=== PATIENT | male | born 1980 | race American Indian/Alaskan Native ===

== ENCOUNTER 2017-10-20 00:43 | Emergency (ER) | payer BC ==
--- NOTE | 2017-10-20 01:29 | C.PDOC ---
History Of Present Illness 37 year old male with previous medical history of hypertension, who presents to the emergency department with a complaint of left groin pain associated with general weakness, malaise, subjective fever and chills ongoing today at work. Patient reported he has been working 3 months straight and feels "run down". PMD: none provided Time Seen by Provider: 10/20/17 01:29 Chief Complaint (Nursing): Groin Pain History Per: Patient History/Exam Limitations: no limitations Onset/Duration Of Symptoms: Days (x1) Current Symptoms Are (Timing): Still Present Severity: Mild Pain Scale Rating Of: 2 Recent travel outside of the [place]: No Additional History Per: Patient Past Medical History Reviewed: Historical Data, Nursing Documentation, Vital Signs Vital Signs: Last Vital Signs Temp 102.3 F H 10/20/17 03:53 Pulse 115 H 10/20/17 03:53 Resp 22 10/20/17 03:53 BP 123/65 10/20/17 03:53 Pulse Ox 98 10/20/17 03:53 - Medical History PMH: HTN Denies: Chronic Kidney Disease Surgical History: Appendectomy - [facility] Procedures INSERTION OF INFUSION DEV INTO SUP VENA CAVA, PERC APPROACH (09/11/15) INSERTION OF INFUSION DEVICE INTO R ATRIUM, PERC APPROACH (09/11/15) Family History: States: Hypertension - Social History Hx Tobacco Use: No Hx Alcohol Use: No Hx Substance Use: No - Immunization History Hx Tetanus Toxoid Vaccination: No Hx Influenza Vaccination: No Hx Pneumococcal Vaccination: No Review Of Systems Constitutional: Positive for: Fever, Chills, Weakness, Malaise ENT: Negative for: Nose Congestion Cardiovascular: Negative for: Chest Pain Respiratory: Negative for: Shortness of Breath Gastrointestinal: Negative for: Nausea, Vomiting, Abdominal Pain Genitourinary: Positive for: Other (left-sided groin pain) Musculoskeletal: Negative for: Back Pain Skin: Negative for: Rash Neurological: Negative for: Weakness Psych: Negative for: Anxiety Physical Exam - Physical Exam Appears: Well, No Acute Distress, Other (morbidly obese) Skin: Warm, Dry Head: Normacephalic Eye(s): bilateral: Normal Inspection Oral Mucosa: Moist Tongue: Normal Appearing Throat: Normal Neck: Supple Chest: Symmetrical Cardiovascular: Rhythm Regular Respiratory: No Decreased Breath Sounds, No Rales, No Rhonchi, No Wheezing Gastrointestinal/Abdominal: Normal Exam, Soft, No Tenderness Back: Normal Inspection, No CVA Tenderness, No Vertebral Tenderness Male Genital: Inguinal Tenderness (left-sided on deep palpation), No Other ( hernia noted) Extremity: No Tenderness Extremity: Bilateral: Atraumatic Neurological/Psych: Oriented x3, Normal Speech, Normal Cognition, Other ( speaking full sentences) Gait: Steady ED Course And Treatment O2 Sat by Pulse Oximetry: 99 (RA) Pulse Ox Interpretation: Normal Progress Note: 5:20 feels fine. no complaints Reevaluation Time: 05:34 Reassessment Condition: Improved Medical Decision Making Medical Decision Making: Initial Impression: Groin pain Initial Plan: * BMP * CBC * Lactated Ringers 1,000ml IV per 400mls/hr * Toradol 30mg IVP Scribe Attestation: Documented by Clarita Butt, acting as a scribe for Mack Ge MD. Provider Scribe Attestation: All medical record entries made by the Scribe were at my direction and personally dictated by me. I have reviewed the chart and agree that the record accurately reflects my personal performance of the history, physical exam, medical decision making, and the department course for this patient. I have also personally directed, reviewed, and agree with the discharge instructions and disposition. Disposition Counseled Patient/Family Regarding: Studies Performed, Diagnosis, Need For Followup, Rx Given - Disposition Referrals: [facility] [Outside] Counts Include [facility] At [facility] [Outside] Disposition: HOME/ ROUTINE Disposition Time: 01:29 Condition: FAIR Additional Instructions: please return if symptoms recur Prescriptions: Oseltamivir Phosphate [Tamiflu] 75 mg PO BID #10 capsule Instructions: Viral Syndrome (ED), Groin Pain (ED) Forms: [facility] ([place]), Work Excuse - Clinical Impression Clinical Impression: Viral syndrome, Strain of left inguinal muscle
[2017-10-20] MEDS ORDERED: Lactated Ringer's 1,000 ML IV ONE (01:36)
[2017-10-20 05:29] VITALS: O2SAT 99
[2017-10-20 06:21] VITALS: BP 128/76; PULSE 98; RESP 20; TEMP 101
== END 2017-10-20 05:50 | disposition home or self-care (01) ==
LOC: C.ER 00:43
DX: S39.011A Strain of muscle, fascia and tendon of abdomen, initial encounter (principal); B34.9 Viral infection, unspecified; I10 Essential (primary) hypertension; X58.XXXA Exposure to other specified factors, initial encounter
CPT/HCPCS: 96374; 99283; J1885

== ENCOUNTER 2017-10-24 20:00 | Inpatient (IN) | payer BC ==
[2017-10-24] MEDS ORDERED: cefTRIAXone IV 1 gm in Dextros 50 ML IVPB ONE (21:08)
[2017-10-24] MEDS ORDERED: Sodium Chloride 0.9% 1,000 ML IV ONE (21:08)
[2017-10-24] MEDS ORDERED: Sodium Chloride 0.9% 1,000 ML ONE (21:58)
[2017-10-24 22:15] LABS: SQUAMOUS EPITHIAL < 1 /hpf (0-5); URINE BILIRUBIN NEGATIVE (NEGATIVE); URINE CLARITY Clear (Clear); URINE COLOR Yellow (YELLOW); URINE GLUCOSE (UA) 3+ mg/dL (Normal); URINE LEUKOCYTE ESTERASE NEG Leu/uL (Negative); URINE NITRATE NEGATIVE (NEGATIVE); URINE PROTEIN 2+ mg/dL (NEGATIVE); URINE UROBILINOGEN NORMAL mg/dL (0.2-1.0)
[2017-10-24 22:22] LABS: BASO # 0.2 K/uL (0.0-0.2); BASO % 1.8 % (0.0-2.0); EOS # 0.2 K/uL (0.0-0.7); EOS % 1.5 % (0.0-4.0); HEMOGLOBIN 10.6 g/dL (12.0-18.0); LYMPH # 0.9 K/uL (1.0-4.3); LYMPH % 7.8 % (20.0-40.0); MEAN CELL VOLUME 86.6 fL (80.0-94.0); MEAN CORPUSCULAR HEMOGLOBIN 28.7 pg (27.0-31.0); MEAN CORPUSCULAR HGB CONC 33.1 g/dL (33.0-37.0); MEAN PLATELET VOLUME 10.7 fL (7.2-11.7); MONO # 1.2 K/uL (0.0-0.8); MONO % 9.8 % (0.0-10.0); NEUT # 9.7 K/uL (1.8-7.0); NEUT % 79.1 % (50.0-75.0); RBC 3.69 Mil/uL (4.40-5.90); RED CELL DISTRIBUTION WIDTH 13.9 % (11.5-14.5); WHITE BLOOD COUNT 12.3 K/uL (4.8-10.8)
[2017-10-24 22:26] LABS: PLATELET COUNT 228 K/uL (130-400)
[2017-10-24 22:29] LABS: ALB/GLOB RATIO 0.9 (1.0-2.1); ALBUMIN 3.9 g/dL (3.5-5.0); ALT/SGPT 31 U/L (21-72); AST/SGOT 32 U/L (17-59); BLOOD UREA NITROGEN 15 mg/dL (9-20); CALCIUM 9.5 mg/dl (8.6-10.4); GFR AFRICAN-AMERICAN > 60; GFR NON-AFRICAN AMERICAN > 60; URINE BLOOD 1+ (NEGATIVE)
--- NOTE | 2017-10-24 22:29 | C.PDOC ---
History Of Present Illness 37 year old male sent to ER by Dr. Streeter for swelling and pain to the left lower extremity for the past week. Denies fever or chills. Time Seen by Provider: 10/24/17 21:02 Chief Complaint (Nursing): Lower Extremity Problem/Injury History Per: Patient History/Exam Limitations: no limitations Onset/Duration Of Symptoms: Days Current Symptoms Are (Timing): Still Present Recent travel outside of the [place]: No Past Medical History Reviewed: Historical Data, Nursing Documentation, Vital Signs Vital Signs: Last Vital Signs Temp 99.9 F H 10/24/17 20:47 Pulse 101 H 10/24/17 20:47 Resp 18 10/24/17 20:47 BP 132/78 10/24/17 20:47 Pulse Ox 95 10/24/17 22:37 - Medical History PMH: HTN Surgical History: Appendectomy - [facility] Procedures INSERTION OF INFUSION DEV INTO SUP VENA CAVA, PERC APPROACH (09/11/15) INSERTION OF INFUSION DEVICE INTO R ATRIUM, PERC APPROACH (09/11/15) Family History: States: Hypertension - Social History Hx Tobacco Use: No Hx Alcohol Use: No Hx Substance Use: No - Immunization History Hx Tetanus Toxoid Vaccination: No Hx Influenza Vaccination: No Hx Pneumococcal Vaccination: No Review Of Systems Constitutional: Negative for: Fever, Chills Cardiovascular: Negative for: Chest Pain, Palpitations Gastrointestinal: Positive for: Abdominal Pain. Negative for: Nausea, Vomiting Genitourinary: Negative for: Dysuria, Hematuria Musculoskeletal: Positive for: Leg Pain (w/ swelling) Physical Exam - Physical Exam Appears: Non-toxic, No Acute Distress Skin: Warm, Dry Head: Atraumatic, Normacephalic Eye(s): bilateral: Normal Inspection Oral Mucosa: Moist Chest: Symmetrical, No Tenderness Cardiovascular: Rhythm Regular Respiratory: Normal Breath Sounds, No Rales, No Rhonchi, No Wheezing Gastrointestinal/Abdominal: Soft, No Tenderness Extremity: Other (Redness and tenderness to the left lower leg area. Warm to touch. No open wound noted.) Pulses: Left Dorsalis Pedis: Normal, Right Dorsalis Pedis: Normal Neurological/Psych: Oriented x3, Normal Speech, Normal Motor, Normal Sensation ED Course And Treatment - Laboratory Results Result Diagrams: 10/24/17 22:05 10/24/17 22:05 O2 Sat by Pulse Oximetry: 95 (Room air) Pulse Ox Interpretation: Normal Progress Note: Blood work and urinalysis ordered. IV fluids, insulin, and rocephin administered. Disposition Discussed With Dr.: Aaron Streeter Doctor Will See Patient In The: Hospital Counseled Patient/Family Regarding: Diagnosis - Disposition Disposition: HOSPITALIZED Disposition Time: 22:35 Condition: STABLE Forms: [facility] ([place]) - POA Present On Arrival: None - Clinical Impression Clinical Impression: Cellulitis, Uncontrolled diabetes mellitus, Hyperglycemia without ketosis - Scribe Statement The provider has reviewed the documentation as recorded by the Scribkathy Bella All medical record entries made by the Selenaibkathy were at my direction and personally dictated by me. I have reviewed the chart and agree that the record accurately reflects my personal performance of the history, physical exam, medical decision making, and the department course for this patient. I have also personally directed, reviewed, and agree with the discharge instructions and disposition.
[2017-10-24] MEDS ORDERED: Sodium Chloride 0.9% 500 ML IV ONE (22:30)
[2017-10-24] MEDS ORDERED: (Novolin R) Insulin Human Regular 100 units/ml vial SC ONE (22:31)
[2017-10-24] MEDS ORDERED: (Novolin R) Insulin Human Regular 100 units/ml vial ONE (22:38)
[2017-10-24 22:51] LABS: EOSINOPHIL 1 % (0-4); LYMPHOCYTE 10 % (20-40); MONOCYTE 17 % (0-10); NEUTROPHIL 72 % (50-75); TOTAL CELLS COUNTED 100
[2017-10-24 22:52] LABS: HYPOCHROMIC SLIGHT; PLATELET ESTIMATE NORMAL (NORMAL)
[2017-10-24 22:53] LABS: INR 1.2; PROTHROMBIN TIME 13.4 SECONDS (9.7-12.2)
[2017-10-24] MEDS ORDERED: Piperacillin/Tazobact 3.375 GM in Sodium Chloride 100 ML IVPB SCH (23:15)
[2017-10-24] MEDS ORDERED: Vancomycin 500 mg Inj IVPB SCH (23:30)
[2017-10-25] MEDS: (Novolin R) Insulin Human Regular 100 units/ml vial SC SCH ×5 (00:06→22:07)
[2017-10-25] MEDS ORDERED: (Novolin R) Insulin Human Regular 100 units/ml vial ONE (00:10)
[2017-10-25] MEDS ORDERED: LISINOPRIL 40 MG PO SCH (10:00)
[2017-10-25] MEDS: Lactobacillus Acidophilus 500 MU Cap PO SCH ×2 (10:04→17:45)
[2017-10-25] MEDS: Enoxaparin 30 mg Syringe SC SCH ×2 (10:04→21:25)
[2017-10-25] MEDS: Piperacillin/Tazobact 3.375 GM in Sodium Chloride 100 ML IVPB SCH ×2 (11:41→18:11)
[2017-10-25 12:20] LABS: BASO % 0.5 % (0.0-2.0); EOS # 0.2 K/uL (0.0-0.7); EOS % 2.1 % (0.0-4.0); HEMOGLOBIN 10.3 g/dL (12.0-18.0); LYMPH # 0.6 K/uL (1.0-4.3); MEAN CELL VOLUME 85.2 fL (80.0-94.0); MEAN CORPUSCULAR HEMOGLOBIN 29.6 pg (27.0-31.0); MEAN CORPUSCULAR HGB CONC 34.7 g/dL (33.0-37.0); MEAN PLATELET VOLUME 9.6 fL (7.2-11.7); MONO # 0.7 K/uL (0.0-0.8); MONO % 7.2 % (0.0-10.0); NEUT # 7.7 K/uL (1.8-7.0); NEUT % 84.2 % (50.0-75.0); NRBC % 0.1 % (0.0-2.0); PLATELET COUNT 245 K/uL (130-400); RBC 3.48 Mil/uL (4.40-5.90); RED CELL DISTRIBUTION WIDTH 13.9 % (11.5-14.5); WHITE BLOOD COUNT 9.1 K/uL (4.8-10.8)
[2017-10-25 12:49] LABS: ALBUMIN 3.6 g/dL (3.5-5.0); ALT/SGPT 34 U/L (21-72); AST/SGOT 52 U/L (17-59); BLOOD UREA NITROGEN 11 mg/dL (9-20); GFR AFRICAN-AMERICAN > 60; GFR NON-AFRICAN AMERICAN > 60
--- NOTE | 2017-10-25 13:00 | VASCLAB ---
PROCEDURE: Lower Extremity Venous Duplex Exam. HISTORY: cellulitis of lower leg PRIORS: None. TECHNIQUE: Bilateral common femoral, femoral, popliteal and posterior tibial, peroneal and great saphenous veins were evaluated. Flow was assessed with color Doppler, compressibility, assessment of phasic flow and augmentation response. Report prepared by GEORGIA Jules, RVT FINDINGS: RIGHT: 1. Common Femoral Vein: 1.1. Compressibility - Fully compressible: Thrombus - None : Flow - Phasic: Augmentation -Normal: Reflux - None. 2. Femoral Vein: 2.1. Compressibility - Fully compressible: Thrombus - None : Flow - Phasic: Augmentation -Normal: Reflux - None. 3. Popliteal Vein: 3.1. Compressibility - Fully compressible: Thrombus - None : Flow - Phasic: Augmentation -Normal: Reflux - None. 4. Posterior Tibial Vein: 4.1. Compressibility - : Thrombus - : Flow - : Augmentation -: Reflux - . 5. Peroneal Vein: 5.1. Compressibility - : Thrombus - : Flow - : Augmentation -: Reflux - . 6. Great Saphenous Vein: 6.1. Compressibility - Fully compressible: Thrombus - None: Flow - Phasic: Augmentation - Normal: Reflux - None. LEFT: 1. Common Femoral Vein: 1.1. Compressibility - Fully compressible: Thrombus - None: Flow - Phasic: Augmentation -Normal: Reflux - None. 2. Femoral Vein: 2.1. Compressibility - Fully compressible: Thrombus - None: Flow - Phasic: Augmentation -Normal: Reflux - None. 3. Popliteal Vein: 3.1. Compressibility - Fully compressible: Thrombus - None : Flow - Phasic: Augmentation -Normal: Reflux - None. 4. Posterior Tibial Vein: 4.1. Compressibility - : Thrombus - : Flow - : Augmentation -: Reflux - . 5. Peroneal Vein: 5.1. Compressibility - : Thrombus - : Flow - : Augmentation -: Reflux - . 6. Great Saphenous Vein: 6.1. Compressibility - Fully compressible: Thrombus - None: Flow - Phasic: Augmentation - Normal: Reflux - None. OTHER FINDINGS: Due to swelling in the calves, bilateral peroneal and posterior tibial vein are not visualized. IMPRESSION: Right: No evidence of deep or superficial vein thrombosis of the right lower extremity. Normal valve function noted of the right side. Left: No evidence of deep or superficial vein thrombosis of the left lower extremity. Normal valve function noted of the left side.
[2017-10-25 13:52] LABS: EOSINOPHIL 2 % (0-4); LYMPHOCYTE 6 % (20-40); MONOCYTE 7 % (0-10); NEUTROPHIL 85 % (50-75); PLATELET ESTIMATE NORMAL (NORMAL); TOTAL CELLS COUNTED 100
[2017-10-25 13:53] LABS: ANISOCYTOSIS SLIGHT; HYPOCHROMIC SLIGHT; LARGE PLATELETS PRESENT; POIKILOCYTOSIS SLIGHT; TARGET CELLS SLIGHT
--- NOTE | 2017-10-25 14:09 | CP.PCM.HP ---
History of Present Illness - History of Present Illness History of Present Illness: COMPREHENSIVE HISTORY & PHYSICAL EXAM HPI ADMITTED WITH CELLULITIS OF LEFT CALF WITH OUT PT FAILURE OF PO AB FEW DAYS AGO PT PRESENTED TO PMD WITH FLU LIKE SYMPTOMS AND LEFT CALF PAIN AND SWELLING . PT WAS GIVEN TAMIFLU . PRESENTED NEXT DAY TO ER AND WAS GIVEN PO KEFLEX . ABOVE PO AB DID NOT IMPROVE PT'S SYMPTOMS AND SWELLING GOT WORSE A/W DIAPHORESIS , FEVER AND FATIGUED PT ALSO WAS FOUND TO HAVE NEW ONSET OF HIGH SUGAR PAST HIST. HTN/OBESITY/PREVIOUS STREP INFECTION OF LEGS SEC TO ELEPHANTIASIS PERSONAL HIST: Smoking. N Alcohol. N Allergy N Travel_- . FAMILY HIST : ROS : Constitutional: POS CHILLS /FATIGUE Eyes: Negative for redness, swelling, itching, discharge, vision changes, blurry vision, double vision, glaucoma, cataracts, Ears: Negative for hearing loss, ringing, , tinnitus, vertigo Nose: Negative for rhinorrhea, stuffiness, sniffing, itching, postnasal drip, discoloration, nasal congestion and epistaxis. Throat: Negative for throat clearing, sore throat, hoarseness, difficulty swallowing and difficulty speaking. Respiratory: Negative for pleuritic chest pain ,daytime somnolence, chronic cough, hemoptysis, snoring at night, Cardiovascular: Negative for chest pain, palpitations, orthopnea, PND, Edema of legs, leg cramps, angina, claudication, , irregular heartbeat, Neurology: Negative for irritability, muscle weakness, numbness and tingling, seizures, tremors, migraines, slurred speech, syncope, memory loss, mood changes , recurrent headaches Gastrointestinal: Negative for difficulty swallowing, diarrhea, constipation, black stools, rectal bleeding, nausea, flatulence, reflux, poor appetite, changes in bowel habits, abdominal pain Genitourinary: Negative for frequent urination, hematuria, discharge, incontinence, urinary retention, frequent UTI, Psychiatric: Negative for depression, anxiety/panic, suicidal tendencies, Musculoskeletal: LEFT CALF PAIN Skin: Negative for rash, ulcers, itching, dry skin and pigmented lesions. P/E: Constitutional: Appears stated age and in no apparent distress. Head: Normocephalic. Ears: External ear canals patent without inflammation. Tympanic membranes intact with normal light reflex and landmark. Eyes: Pupils are central, bilaterally equal, symmetrical and reacts to light with normal movements and no icterus or pallor. Nose: External nares are patent. Mucosa is pink Mouth-Throat: Good general appearance and condition. No post-pharyngeal/oropharyngeal erythema and tonsillar hypertrophy. Good dental hygiene. Neck-Lymphatic: Neck is supple with normal ROM, no thyromegaly, lymph nodes or masses. JVD is normal with no carotid bruit. Lungs: Clear to percussion and auscultation with bilateral normal air entry. Cardiovascular: S1 and S2 are normal with no murmurs, gallops and rub. GI Exam: No hepatomegaly. Abdomen is soft and non-tender. No Organomegaly , masses or hernias are evident and bowel sounds are normal and active. Neurology: Higher function and all cranial nerves intact, with no gross motor or sensory deficit. Superficial and deep reflexes are normal with downwards planters. No cerebellar deficit with normal gait. Musculoskeletal: COMPARED TO R, LEFT CALF IS SWOLLEN , INCREASE TEMP, . BOTH LEGS CH LYMPHEDEMA Extremities: Homans sign absent. Intact pulses with no pitting edema, calf tenderness or skin color changes. Skin: No rash, eruptions or abnormal skin pigmentation LAB/RADIOLOGY: ASSESMENT : LEFT LEG CELLULITIS WITH CH. LYMPHEDEMA HTN NEW ONSET DM PLAN: SEE ORDERS Present on Admission - Present on Admission Any Indicators Present on Admission: No Past Patient History - Infectious Disease Hx of Infectious Diseases: None - Past Medical History & Family History Past Medical History?: Yes - Past Social History Smoking Status: Light Smoker < 10 Cigarettes Daily - CARDIAC Hx Hypertension: Yes - PULMONARY Hx Respiratory Disorders: No - NEUROLOGICAL Hx Neurological Disorder: No - HEENT Hx HEENT Problems: No - RENAL Hx Chronic Kidney Disease: No - ENDOCRINE/METABOLIC Hx Endocrine Disorders: No - HEMATOLOGICAL/ONCOLOGICAL Hx Blood Disorders: No - INTEGUMENTARY Hx Dermatological Problems: No - MUSCULOSKELETAL/RHEUMATOLOGICAL Hx Musculoskeletal Disorders: Yes Hx Falls: No Other/Comment: Left lower extremity cellulitis, LYMPHEDEMA - GASTROINTESTINAL Hx Gastrointestinal Disorders: No - GENITOURINARY/GYNECOLOGICAL Hx Genitourinary Disorders: No - PSYCHIATRIC Hx Psychophysiologic Disorder: No Hx Substance Use: No - SURGICAL HISTORY Hx Surgeries: Yes Hx Appendectomy: Yes - ANESTHESIA Hx Anesthesia: Yes Hx Anesthesia Reactions: No Meds Allergies/Adverse Reactions: Allergies Allergy/AdvReac Type Severity Reaction Status Date / Time No Known Allergies Allergy Verified 10/24/17 20:56 Results - Vital Signs Recent Vital Signs: Last Vital Signs Temp 98.9 F 10/25/17 07:59 Pulse 97 H 10/25/17 07:59 Resp 20 10/25/17 07:59 BP 143/65 10/25/17 07:59 Pulse Ox 96 10/25/17 07:59 - Labs Result Diagrams: 10/25/17 12:03 10/25/17 12:03 Labs: Laboratory Results - last 24 hr 10/24/17 10/24/17 10/24/17 22:05 22:05 22:05 WBC 12.3 H RBC 3.69 L Hgb 10.6 L Hct 31.9 L MCV 86.6 MCH 28.7 MCHC 33.1 RDW 13.9 Plt Count 228 D MPV 10.7 Neut % (Auto) 79.1 H Lymph % (Auto) 7.8 L [place] % (Auto) 9.8 Eos % (Auto) 1.5 Baso % (Auto) 1.8 Neut # 9.7 H Lymph # 0.9 L [place] # 1.2 H Eos # 0.2 Baso # 0.2 Neutrophils % (Manual) 72 Lymphocytes % (Manual) 10 L Monocytes % (Manual) 17 H Eosinophils % (Manual) 1 Platelet Estimate Normal Large Platelets Hypochromasia (manual) Slight Poikilocytosis (manual Anisocytosis (manual) Target Cells PT INR APTT D-Dimer, Quantitative Sodium 124 L Potassium 4.0 Chloride 88 L Carbon Dioxide 26 Anion Gap 14 BUN 15 Creatinine 1.1 Est GFR ( Amer) > 60 Est GFR (Non-Af Amer) > 60 POC Glucose (mg/dL) Random Glucose 446 H* D Calcium 9.5 Total Bilirubin 0.9 AST 32 ALT 31 Alkaline Phosphatase 92 Total Protein 8.4 H Albumin 3.9 Globulin 4.5 H Albumin/Globulin Ratio 0.9 L Urine Color Yellow Urine Clarity Clear Urine pH 6.0 Ur Specific [place] 1.024 Urine Protein 2+ H Urine Glucose (UA) 3+ H Urine Ketones Negative Urine Blood 1+ H Urine Nitrate Negative Urine Bilirubin Negative Urine Urobilinogen Normal Ur Leukocyte Esterase Neg Urine WBC (Auto) 3 Urine RBC (Auto) 2 Ur Squamous Epith Cells < 1 Serum Ketones 10/24/17 10/24/17 10/25/17 22:39 22:45 00:02 WBC RBC Hgb Hct MCV MCH MCHC RDW Plt Count MPV Neut % (Auto) Lymph % (Auto) [place] % (Auto) Eos % (Auto) Baso % (Auto) Neut # Lymph # [place] # Eos # Baso # Neutrophils % (Manual) Lymphocytes % (Manual) Monocytes % (Manual) Eosinophils % (Manual) Platelet Estimate Large Platelets Hypochromasia (manual) Poikilocytosis (manual Anisocytosis (manual) Target Cells PT 13.4 H INR 1.2 APTT 22 D-Dimer, Quantitative 552 H Sodium Potassium Chloride Carbon Dioxide Anion Gap BUN Creatinine Est GFR ( Amer) Est GFR (Non-Af Amer) POC Glucose (mg/dL) 321 H Random Glucose Calcium Total Bilirubin AST ALT Alkaline Phosphatase Total Protein Albumin Globulin Albumin/Globulin Ratio Urine Color Urine Clarity Urine pH Ur Specific [place] Urine Protein Urine Glucose (UA) Urine Ketones Urine Blood Urine Nitrate Urine Bilirubin Urine Urobilinogen Ur Leukocyte Esterase Urine WBC (Auto) Urine RBC (Auto) Ur Squamous Epith Cells Serum Ketones Negative 10/25/17 10/25/17 10/25/17 07:21 11:35 12:03 WBC 9.1 RBC 3.48 L Hgb 10.3 L Hct 29.6 L MCV 85.2 MCH 29.6 MCHC 34.7 RDW 13.9 Plt Count 245 MPV 9.6 Neut % (Auto) 84.2 H Lymph % (Auto) 6.0 L [place] % (Auto) 7.2 Eos % (Auto) 2.1 Baso % (Auto) 0.5 Neut # 7.7 H Lymph # 0.6 L [place] # 0.7 Eos # 0.2 Baso # 0.0 Neutrophils % (Manual) 85 H Lymphocytes % (Manual) 6 L Monocytes % (Manual) 7 Eosinophils % (Manual) 2 Platelet Estimate Normal Large Platelets Present Hypochromasia (manual) Slight Poikilocytosis (manual Slight Anisocytosis (manual) Slight Target Cells Slight PT INR APTT D-Dimer, Quantitative Sodium Potassium Chloride Carbon Dioxide Anion Gap BUN Creatinine Est GFR ( Amer) Est GFR (Non-Af Amer) POC Glucose (mg/dL) 299 H 352 H Random Glucose Calcium Total Bilirubin AST ALT Alkaline Phosphatase Total Protein Albumin Globulin Albumin/Globulin Ratio Urine Color Urine Clarity Urine pH Ur Specific [place] Urine Protein Urine Glucose (UA) Urine Ketones Urine Blood Urine Nitrate Urine Bilirubin Urine Urobilinogen Ur Leukocyte Esterase Urine WBC (Auto) Urine RBC (Auto) Ur Squamous Epith Cells Serum Ketones 10/25/17 12:03 WBC RBC Hgb Hct MCV MCH MCHC RDW Plt Count MPV Neut % (Auto) Lymph % (Auto) Treg[place] % (Auto) Eos % (Auto) Baso % (Auto) Neut # Lymph # [place] # Eos # Baso # Neutrophils % (Manual) Lymphocytes % (Manual) Monocytes % (Manual) Eosinophils % (Manual) Platelet Estimate Large Platelets Hypochromasia (manual) Poikilocytosis (manual Anisocytosis (manual) Target Cells PT INR APTT D-Dimer, Quantitative Sodium 128 L Potassium 3.5 L Chloride 93 L Carbon Dioxide 27 Anion Gap 12 BUN 11 Creatinine 1.0 Est GFR ( Amer) > 60 Est GFR (Non-Af Amer) > 60 POC Glucose (mg/dL) Random Glucose 394 H Calcium 9.0 Total Bilirubin 0.7 AST 52 ALT 34 Alkaline Phosphatase 126 D Total Protein 7.4 Albumin 3.6 Globulin 3.8 Albumin/Globulin Ratio 1.0 Urine Color Urine Clarity Urine pH Ur Specific [place] Urine Protein Urine Glucose (UA) Urine Ketones Urine Blood Urine Nitrate Urine Bilirubin Urine Urobilinogen Ur Leukocyte Esterase Urine WBC (Auto) Urine RBC (Auto) Ur Squamous Epith Cells Serum Ketones
--- NOTE | 2017-10-25 14:46 | RAD ---
HISTORY: sob, cough COMPARISON: 09/16/2015 TECHNIQUE: Chest PA and lateral FINDINGS: LUNGS: No active pulmonary disease. PLEURA: No significant pleural effusion identified. No pneumothorax apparent. CARDIOVASCULAR: Normal. OSSEOUS STRUCTURES: No significant abnormalities. VISUALIZED UPPER ABDOMEN: Normal. OTHER FINDINGS: None. IMPRESSION: No active disease.
[2017-10-25] MEDS: Albuterol-Ipratrop 3 mg / 0.5 (3 ml) UD INH SCH ×2 (15:11→20:02)
[2017-10-25] MEDS: guaiFENesin DM 100 mg-10 mg/5 ml UD PO SCH (17:45)
--- NOTE | 2017-10-25 22:28 | CP.PCM.CON ---
History of Present Illness - History of Present Illness History of Present Illness: PATIENT SEEN. CHART REVIEWED. CONSULT DICTATED; SEE REPORT;SEE ORDER SHEET. THANK YOU. Past Patient History - Infectious Disease Hx of Infectious Diseases: None - Past Medical History & Family History Past Medical History?: Yes - Past Social History Smoking Status: Light Smoker < 10 Cigarettes Daily - CARDIAC Hx Hypertension: Yes - PULMONARY Hx Respiratory Disorders: No - NEUROLOGICAL Hx Neurological Disorder: No - HEENT Hx HEENT Problems: No - RENAL Hx Chronic Kidney Disease: No - ENDOCRINE/METABOLIC Hx Endocrine Disorders: No - HEMATOLOGICAL/ONCOLOGICAL Hx Blood Disorders: No - INTEGUMENTARY Hx Dermatological Problems: No - MUSCULOSKELETAL/RHEUMATOLOGICAL Hx Musculoskeletal Disorders: Yes Hx Falls: No Other/Comment: Left lower extremity cellulitis, LYMPHEDEMA - GASTROINTESTINAL Hx Gastrointestinal Disorders: No - GENITOURINARY/GYNECOLOGICAL Hx Genitourinary Disorders: No - PSYCHIATRIC Hx Psychophysiologic Disorder: No Hx Substance Use: No - SURGICAL HISTORY Hx Surgeries: Yes Hx Appendectomy: Yes - ANESTHESIA Hx Anesthesia: Yes Hx Anesthesia Reactions: No Meds Allergies/Adverse Reactions: Allergies Allergy/AdvReac Type Severity Reaction Status Date / Time No Known Allergies Allergy Verified 10/24/17 20:56 - Medications Medications: Current Medications Acetaminophen (Tylenol 325mg Tab) 650 mg PO Q6 PRN PRN Reason: FEVER/ PAIN Last Admin: 10/25/17 01:17 Dose: 650 mg Albuterol/Ipratropium (Duoneb 3 Mg/0.5 Mg (3 Ml) Ud) 3 ml INH RQ6 [facility] Last Admin: 10/25/17 20:02 Dose: Not Given Bumetanide (Bumex) 1 mg PO DAILY [facility] Last Admin: 10/25/17 10:04 Dose: 1 mg Enoxaparin Sodium (Lovenox) 30 mg SC Q12 [facility] Last Admin: 10/25/17 21:25 Dose: 30 mg Guaifenesin/Dextromethorphan (Robitussin Dm) 5 ml PO Q6 [facility] Last Admin: 10/25/17 17:45 Dose: 5 ml Piperacillin Sod/Tazobactam (Sod 3.375 gm/ Sodium Chloride) 100 mls @ 200 mls/ hr IVPB Q8H [facility] Last Admin: 10/25/17 18:11 Dose: 200 mls/hr Vancomycin HCl 1,250 mg/ (Dextrose) 250 mls @ 120 mls/hr IVPB Q12H [facility] Insulin Human Regular (Novolin R) 0 unit SC ACHS [facility] PRN Reason: Protocol Last Admin: 10/25/17 22:07 Dose: 2 unit Lactobacillus Acidophilus (Bacid Acidophilus) 1 cap PO BID [facility] Last Admin: 10/25/17 17:45 Dose: 1 cap Lisinopril (Zestril) 40 mg PO DAILY [facility] Last Admin: 10/25/17 10:05 Dose: 40 mg Pneumococcal Polyvalent Vaccine (Pneumovax 23 Vaccine) 0.5 ml IM .ONCE ONE Stop: 10/27/17 10:01 Results - Vital Signs Recent Vital Signs: Last Vital Signs Temp 99.2 F 10/25/17 16:00 Pulse 104 H 10/25/17 16:00 Resp 20 10/25/17 16:00 BP 146/72 10/25/17 16:00 Pulse Ox 95 10/25/17 16:00 - Labs Result Diagrams: 10/26/17 08:33 10/26/17 08:33 Labs: Laboratory Results - last 24 hr 10/24/17 10/24/17 10/24/17 22:05 22:05 22:05 WBC RBC Hgb Hct MCV MCH MCHC RDW Plt Count MPV Neut % (Auto) Lymph % (Auto) [place] % (Auto) Eos % (Auto) Baso % (Auto) Neut # Lymph # [place] # Eos # Baso # Neutrophils % (Manual) 72 Lymphocytes % (Manual) 10 L Monocytes % (Manual) 17 H Eosinophils % (Manual) 1 Platelet Estimate Normal Large Platelets Hypochromasia (manual) Slight Poikilocytosis (manual Anisocytosis (manual) Target Cells PT INR APTT D-Dimer, Quantitative Sodium 124 L Potassium 4.0 Chloride 88 L Carbon Dioxide 26 Anion Gap 14 BUN 15 Creatinine 1.1 Est GFR ( Amer) > 60 Est GFR (Non-Af Amer) > 60 POC Glucose (mg/dL) Random Glucose 446 H* D Calcium 9.5 Total Bilirubin 0.9 AST 32 ALT 31 Alkaline Phosphatase 92 Total Protein 8.4 H Albumin 3.9 Globulin 4.5 H Albumin/Globulin Ratio 0.9 L Urine Color Yellow Urine Clarity Clear Urine pH 6.0 Ur Specific [place] 1.024 Urine Protein 2+ H Urine Glucose (UA) 3+ H Urine Ketones Negative Urine Blood 1+ H Urine Nitrate Negative Urine Bilirubin Negative Urine Urobilinogen Normal Ur Leukocyte Esterase Neg Urine WBC (Auto) 3 Urine RBC (Auto) 2 Ur Squamous Epith Cells < 1 Serum Ketones 10/24/17 10/24/17 10/25/17 22:39 22:45 00:02 WBC RBC Hgb Hct MCV MCH MCHC RDW Plt Count MPV Neut % (Auto) Lymph % (Auto) [place] % (Auto) Eos % (Auto) Baso % (Auto) Neut # Lymph # [place] # Eos # Baso # Neutrophils % (Manual) Lymphocytes % (Manual) Monocytes % (Manual) Eosinophils % (Manual) Platelet Estimate Large Platelets Hypochromasia (manual) Poikilocytosis (manual Anisocytosis (manual) Target Cells PT 13.4 H INR 1.2 APTT 22 D-Dimer, Quantitative 552 H Sodium Potassium Chloride Carbon Dioxide Anion Gap BUN Creatinine Est GFR ( Amer) Est GFR (Non-Af Amer) POC Glucose (mg/dL) 321 H Random Glucose Calcium Total Bilirubin AST ALT Alkaline Phosphatase Total Protein Albumin Globulin Albumin/Globulin Ratio Urine Color Urine Clarity Urine pH Ur Specific [place] Urine Protein Urine Glucose (UA) Urine Ketones Urine Blood Urine Nitrate Urine Bilirubin Urine Urobilinogen Ur Leukocyte Esterase Urine WBC (Auto) Urine RBC (Auto) Ur Squamous Epith Cells Serum Ketones Negative 10/25/17 10/25/17 10/25/17 07:21 11:35 12:03 WBC 9.1 RBC 3.48 L Hgb 10.3 L Hct 29.6 L MCV 85.2 MCH 29.6 MCHC 34.7 RDW 13.9 Plt Count 245 MPV 9.6 Neut % (Auto) 84.2 H Lymph % (Auto) 6.0 L [place] % (Auto) 7.2 Eos % (Auto) 2.1 Baso % (Auto) 0.5 Neut # 7.7 H Lymph # 0.6 L [place] # 0.7 Eos # 0.2 Baso # 0.0 Neutrophils % (Manual) 85 H Lymphocytes % (Manual) 6 L Monocytes % (Manual) 7 Eosinophils % (Manual) 2 Platelet Estimate Normal Large Platelets Present Hypochromasia (manual) Slight Poikilocytosis (manual Slight Anisocytosis (manual) Slight Target Cells Slight PT INR APTT D-Dimer, Quantitative Sodium Potassium Chloride Carbon Dioxide Anion Gap BUN Creatinine Est GFR ( Amer) Est GFR (Non-Af Amer) POC Glucose (mg/dL) 299 H 352 H Random Glucose Calcium Total Bilirubin AST ALT Alkaline Phosphatase Total Protein Albumin Globulin Albumin/Globulin Ratio Urine Color Urine Clarity Urine pH Ur Specific [place] Urine Protein Urine Glucose (UA) Urine Ketones Urine Blood Urine Nitrate Urine Bilirubin Urine Urobilinogen Ur Leukocyte Esterase Urine WBC (Auto) Urine RBC (Auto) Ur Squamous Epith Cells Serum Ketones 10/25/17 10/25/17 10/25/17 12:03 16:12 20:57 WBC RBC Hgb Hct MCV MCH MCHC RDW Plt Count MPV Neut % (Auto) Lymph % (Auto) [place] % (Auto) Eos % (Auto) Baso % (Auto) Neut # Lymph # [place] # Eos # Baso # Neutrophils % (Manual) Lymphocytes % (Manual) Monocytes % (Manual) Eosinophils % (Manual) Platelet Estimate Large Platelets Hypochromasia (manual) Poikilocytosis (manual Anisocytosis (manual) Target Cells PT INR APTT D-Dimer, Quantitative Sodium 128 L Potassium 3.5 L Chloride 93 L Carbon Dioxide 27 Anion Gap 12 BUN 11 Creatinine 1.0 Est GFR ( Amer) > 60 Est GFR (Non-Af Amer) > 60 POC Glucose (mg/dL) 423 H* 311 H Random Glucose 394 H Calcium 9.0 Total Bilirubin 0.7 AST 52 ALT 34 Alkaline Phosphatase 126 D Total Protein 7.4 Albumin 3.6 Globulin 3.8 Albumin/Globulin Ratio 1.0 Urine Color Urine Clarity Urine pH Ur Specific [place] Urine Protein Urine Glucose (UA) Urine Ketones Urine Blood Urine Nitrate Urine Bilirubin Urine Urobilinogen Ur Leukocyte Esterase Urine WBC (Auto) Urine RBC (Auto) Ur Squamous Epith Cells Serum Ketones
[2017-10-26] MEDS: DEXTROSE 5% IVPB SCH ×2 (00:01→11:03)
[2017-10-26] MEDS: VANCOMYCIN IVPB SCH ×2 (00:01→11:03)
[2017-10-26] MEDS: WATER IVPB SCH ×2 (00:01→11:03)
[2017-10-26] MEDS: guaiFENesin DM 100 mg-10 mg/5 ml UD PO SCH ×4 (00:04→17:54)
[2017-10-26] MEDS: Albuterol-Ipratrop 3 mg / 0.5 (3 ml) UD INH SCH ×4 (01:08→19:35)
[2017-10-26] MEDS: Piperacillin/Tazobact 3.375 GM in Sodium Chloride 100 ML IVPB SCH ×2 (02:02→10:24)
[2017-10-26] MEDS: (Novolin R) Insulin Human Regular 100 units/ml vial SC SCH ×4 (08:03→21:55)
--- NOTE | 2017-10-26 08:22 | CON ---
DATE: 10/25/2017 INFECTIOUS DISEASE CONSULTATION REQUESTED BY: Aaron Streeter MD. REASON FOR CONSULTATION: Extensive cellulitis, left leg and elevated temperatures. HISTORY OF PRESENT ILLNESS: The patient is a 37-year-old Afro-[place] male who is well-known to me with history of hypertension, moderate obesity, and previous history of Staphylococcus infections of leg secondary to chronic lymphedema, who presents from the private MD's office because of increasing cellulitis and swelling of the left calf with outpatient failure of p.o. antibiotics. As reported, the patient a few days ago, presented to the MD with flu-like symptoms and left calf pain and swelling. The patient was given Tamiflu, but presented the next day to [facility] ER, where he was given p.o. Keflex. The patient took antibiotics, but did not improve and the swelling got worse associated with diaphoresis, fevers, and fatigue. The patient was also found to have new onset of high blood sugars in the ER. Infectious Disease consultation was requested therefore for extensive cellulitis and hyperpyrexia. The patient has been spiking temperature of 101.6 in the hospital since his admission. PAST MEDICAL HISTORY: As above, history of hypertension, history of morbid obesity, also a history of seizures, history of Streptococci, and cellulitis associated with Staphylococcus infections and chronic lymphedema. PERSONAL HISTORY: The patient denies any history of smoking or drinking. Denies any recent travel. ALLERGIES: NONE KNOWN. FAMILY HISTORY: Unremarkable. REVIEW OF SYSTEMS: GENERAL: Presently, complains of chills and pain on ambulating in the left lower extremity. Also, complains of generalized fatigue and hyperpyrexia. RESPIRATORY: Presently,complains of cough, but no expectoration. Also, complains of snoring at night and increased daytime somnolence. CARDIOVASCULAR: Denies any chest pains or palpitations. Positive for edema of the left leg more than the right. Induration noted on both calf, left more than right. CENTRAL NERVOUS SYSTEM: Denies any seizures or tremors. No history of headaches or syncopal episodes. GASTROINTESTINAL: Unremarkable presently. GENITOURINARY: Unremarkable presently. MUSCULOSKELETAL: Complains of left calf pain. PHYSICAL EXAMINATION: GENERAL: The patient is awake and alert, slightly fatigued. VITAL SIGNS: T-max of 101.6, blood pressure 143/65, respirations 20, pulse 97 per minute, and pulse ox is 96% on room air. HEENT: Pupils are equal and reactive to light and accommodation. Extraocular movements are full. Fundus is negative. Sclerae nonicteric. Conjunctivae normal. JVP not elevated. NECK: Appears to be supple. No thyromegaly noted. No lymphadenopathy appreciated. JVP is flat. LUNGS: A few rhonchi, but otherwise unremarkable. CARDIOVASCULAR SYSTEM: S1 and S2 normal. No murmur or gallop. ABDOMEN: Soft, obese. Bowel sounds are present. No organomegaly appreciated. EXTREMITIES: Left calf is much swollen than the right calf with warmth and tenderness to touch, chronic lymphedema in both lower extremities. Homans sign is absent. No pitting edema, calf tenderness, or skin color changes seen. LABORATORY DATA: WBCs presently 9.1, hemoglobin of 10.3, and platelets 245. Creatinine 1.0, BUN of 11, sodium 128, blood sugars have been elevated at 446 and 394. Liver function tests are normal. Urinalysis is unremarkable, serum ketones negative. IMPRESSION: 1. Left leg cellulitis with chronic lymphedema. 2. Hypertension. 3. New onset of diabetes mellitus. 4. Morbid obesity. 5. Obstructive sleep apnea. PLAN: Suggest sanders cultures. We will get sed rate, C-reactive proteins. Continue Zosyn 3.375 g IV piggyback q. 8 hourly, started on 10/24/2017. Also, continue vancomycin 1250 mg IV piggyback q. 12 hourly, started on 10/24/2017. We will follow vancomycin trough levels prior to the fourth dose. Follow up renal functions closely. We will review chest x-ray. Cough expectorant as requested by the patient. We will follow along with you, follow up cultures to adjust antibiotics. Thank you very much for allowing me to participate in the care of your patient. We will follow up with you. Tracie Figueroa MD
[2017-10-26 08:47] LABS: BASO % 0.1 % (0.0-2.0); EOS # 0.5 K/uL (0.0-0.7); EOS % 4.3 % (0.0-4.0); HEMOGLOBIN 9.6 g/dL (12.0-18.0); LYMPH # 0.8 K/uL (1.0-4.3); LYMPH % 7.8 % (20.0-40.0); MEAN CELL VOLUME 85.8 fL (80.0-94.0); MEAN CORPUSCULAR HEMOGLOBIN 29.7 pg (27.0-31.0); MEAN CORPUSCULAR HGB CONC 34.6 g/dL (33.0-37.0); MEAN PLATELET VOLUME 9.9 fL (7.2-11.7); MONO # 0.9 K/uL (0.0-0.8); MONO % 8.6 % (0.0-10.0); NEUT # 8.6 K/uL (1.8-7.0); NEUT % 79.2 % (50.0-75.0); NRBC % 0.1 % (0.0-2.0); PLATELET COUNT 279 K/uL (130-400); RBC 3.22 Mil/uL (4.40-5.90); RED CELL DISTRIBUTION WIDTH 13.4 % (11.5-14.5); WHITE BLOOD COUNT 10.9 K/uL (4.8-10.8)
[2017-10-26 09:03] LABS: ALB/GLOB RATIO 0.9 (1.0-2.1); ALBUMIN 3.6 g/dL (3.5-5.0); ALT/SGPT 42 U/L (21-72); AST/SGOT 33 U/L (17-59); BLOOD UREA NITROGEN 9 mg/dL (9-20); GFR AFRICAN-AMERICAN > 60; GFR NON-AFRICAN AMERICAN > 60
[2017-10-26] MEDS: Lactobacillus Acidophilus 500 MU Cap PO SCH ×2 (10:03→17:54)
[2017-10-26] MEDS: Enoxaparin 30 mg Syringe SC SCH ×2 (10:04→21:51)
[2017-10-26 11:23] LABS: BANDS 6 % (0-2); BASOPHIL 1 % (0-2); EOSINOPHIL 8 % (0-4); LYMPHOCYTE 3 % (20-40); METAMYELOCYTE 1 % (0-0); MONOCYTE 8 % (0-10); NEUTROPHIL 72 % (50-75); PLATELET ESTIMATE NORMAL (NORMAL); REACTIVE LYMPHOCYTES 1 % (0-0); TOTAL CELLS COUNTED 100
--- NOTE | 2017-10-26 13:38 | CP.PCM.PN ---
Subjective - Date & Time of Evaluation Date of Evaluation: 10/26/17 Time of Evaluation: 13:38 - Subjective Subjective: CHIEF COMPLAINTS TODAY : LEFT CALF PAIN LOW GRADE TEMP BLOOD SUGAR MORE THAN 400. ROS. HEENT : N. Resp : No cough, wheezing ,pleuritic CP ,or hemoptysis Cardio : No anginal CP, PND, orthopnea, palpitation GI : No abd.pain, n/v ,diarrhea or GI bleeding . 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 Musculoskel : No joint swelling , Derm : No rash Psych : Normal affect. Ext : +VE SWELLING , POS L CALF PAIN. PE. Pt. is alert awake in no distress. V.S As noted in the chart Head ,ear nose,throat and eyes : Normal. Neck : Supple with normal carotids. Lungs: Clear air entry. Heart : S1 & S2 normal with S4. No murmur. Abd : Soft non tender with normal bowel sounds. Neuro : Moves all ext. with no localized deficit. Ext : DOMINICK CH. LYMPHEDEMA WITH SWOLLEN TENDER LEFT CALF > RT. Derm : No rashes or decubitus ulcer. LABS/RADIOLOGY: DOPPLER NEG DVT wbc 10.9. SUGARS 425 CREAT 1.1 / BUN 9 LFTS NORMAL BLOOD CULTURES 10/24/17 -VE GROWTH SO FAR. ASSESSMENT; LEFT LOWER EXTREMITY CELLULITIS?STAPH/OR STREP BILATERAL LOWER EXTREMITY LYMPHEDEMA.. NEW ONSET DIABETES MELLITUS. MORBID OBESITY. JUAN /PLAN : CONTINUE iv zOSYN 3.375 EVERY 8 HOURLY 10/24/17. CONTINUE iv VANCOMYCIN 1250 MG iv EVERY 12 HOURLY 10/24/17. fOLLOW-UP VANCO TROUGH LEVEL PRIOR TO THE FOURTH DOSE AND KEEP BETWEEN 10 AND 20. ADEQUATE CONTROL OF SUGARS ADDED METFORMIN BY PMD. Objective - Vital Signs/Intake and Output Vital Signs (last 24 hours): Temp Pulse Resp BP Pulse Ox 98.7 F 100 H 20 130/70 95 10/26/17 11:04 10/26/17 08:51 10/26/17 08:51 10/26/17 08:51 10/26/17 08:51 - Medications Medications: Current Medications Acetaminophen (Tylenol 325mg Tab) 650 mg PO Q6 PRN PRN Reason: FEVER/ PAIN Last Admin: 10/26/17 10:04 Dose: 650 mg Albuterol/Ipratropium (Duoneb 3 Mg/0.5 Mg (3 Ml) Ud) 3 ml INH RQ6 [facility] Last Admin: 10/26/17 13:08 Dose: Not Given Bumetanide (Bumex) 1 mg PO DAILY [facility] Last Admin: 10/26/17 10:04 Dose: 1 mg Enoxaparin Sodium (Lovenox) 30 mg SC Q12 [facility] Last Admin: 10/26/17 10:04 Dose: 30 mg Guaifenesin/Dextromethorphan (Robitussin Dm) 5 ml PO Q6 [facility] Last Admin: 10/26/17 11:40 Dose: 5 ml Piperacillin Sod/Tazobactam (Sod 3.375 gm/ Sodium Chloride) 100 mls @ 200 mls/ hr IVPB Q8H [facility] Stop: 10/26/17 15:00 Last Admin: 10/26/17 10:24 Dose: 200 mls/hr Vancomycin HCl 1,250 mg/ (Dextrose) 250 mls @ 120 mls/hr IVPB Q12H [facility] Last Admin: 10/26/17 11:03 Dose: 120 mls/hr Piperacillin Sod/Tazobactam Sod (Zosyn 3.375 Gm Iv Premix) 3.375 gm in 50 mls @ 200 mls/hr IVPB Q8H [facility] Insulin Human Regular (Novolin R) 0 unit SC ACHS [facility] PRN Reason: Protocol Last Admin: 10/26/17 11:41 Dose: 6 unit Lactobacillus Acidophilus (Bacid Acidophilus) 1 cap PO BID [facility] Last Admin: 10/26/17 10:03 Dose: 1 cap Lisinopril (Zestril) 40 mg PO DAILY [facility] Last Admin: 10/26/17 10:05 Dose: 40 mg Pneumococcal Polyvalent Vaccine (Pneumovax 23 Vaccine) 0.5 ml IM .ONCE ONE Stop: 10/27/17 10:01 - Labs Labs: 10/26/17 08:33 10/26/17 08:33 PT 13.4 SECONDS (9.7-12.2) H 10/24/17 22:39 INR 1.2 10/24/17 22:39 APTT 22 SECONDS (21-34) 10/24/17 22:39
--- NOTE | 2017-10-26 14:15 | CP.PCM.PN ---
Subjective - Date & Time of Evaluation Date of Evaluation: 10/26/17 Time of Evaluation: 14:12 - Subjective Subjective: CHIEF COMPLAINTS TODAY : LEFT CALF PAIN LOW GRADE TEMP ROS. HEENT : N. Resp : No cough, wheezing ,pleuritic CP ,or hemoptysis Cardio : No anginal CP, PND, orthopnea, palpitation GI : No abd.pain, n/v ,diarrhea or GI bleeding . [employer] ATTORNEY : No headache, vertigo, focal deficit. Musculoskel : No joint swelling , Derm : No rash Psych : Normal affect. Ext : No swelling , POS L calf pain PE. Pt. is alert awake in no distress. V.S As noted in the chart Head ,ear nose,throat and eyes : Normal. Neck : Supple with normal carotids. Lungs: Clear air entry. Heart : S1 & S2 normal with S4. No murmur. Abd : Soft non tender with normal bowel sounds. Neuro : Moves all ext. with no localized deficit. Ext : DOMINICK CH. LYMPHEDEMA WITH SWOLLEN TENDER LEFT CALF Derm : No rashes or decubitus ulcer. LABS/RADIOLOGY: DOPPLER NEG DVT SUGARS ARE UP ASSESSMENT/PLAN : ADD METFORMIN IV AB Objective - Vital Signs/Intake and Output Vital Signs (last 24 hours): Temp Pulse Resp BP Pulse Ox 98.7 F 100 H 20 130/70 95 10/26/17 11:04 10/26/17 08:51 10/26/17 08:51 10/26/17 08:51 10/26/17 08:51 - Medications Medications: Current Medications Acetaminophen (Tylenol 325mg Tab) 650 mg PO Q6 PRN PRN Reason: FEVER/ PAIN Last Admin: 10/26/17 10:04 Dose: 650 mg Albuterol/Ipratropium (Duoneb 3 Mg/0.5 Mg (3 Ml) Ud) 3 ml INH RQ6 [facility] Last Admin: 10/26/17 13:08 Dose: Not Given Bumetanide (Bumex) 1 mg PO DAILY [facility] Last Admin: 10/26/17 10:04 Dose: 1 mg Enoxaparin Sodium (Lovenox) 30 mg SC Q12 [facility] Last Admin: 10/26/17 10:04 Dose: 30 mg Guaifenesin/Dextromethorphan (Robitussin Dm) 5 ml PO Q6 [facility] Last Admin: 10/26/17 11:40 Dose: 5 ml Piperacillin Sod/Tazobactam (Sod 3.375 gm/ Sodium Chloride) 100 mls @ 200 mls/ hr IVPB Q8H [facility] Stop: 10/26/17 15:00 Last Admin: 10/26/17 10:24 Dose: 200 mls/hr Vancomycin HCl 1,250 mg/ (Dextrose) 250 mls @ 120 mls/hr IVPB Q12H [facility] Last Admin: 10/26/17 11:03 Dose: 120 mls/hr Piperacillin Sod/Tazobactam Sod (Zosyn 3.375 Gm Iv Premix) 3.375 gm in 50 mls @ 200 mls/hr IVPB Q8H [facility] Insulin Human Regular (Novolin R) 0 unit SC ACHS [facility] PRN Reason: Protocol Last Admin: 10/26/17 11:41 Dose: 6 unit Lactobacillus Acidophilus (Bacid Acidophilus) 1 cap PO BID [facility] Last Admin: 10/26/17 10:03 Dose: 1 cap Lisinopril (Zestril) 40 mg PO DAILY [facility] Last Admin: 10/26/17 10:05 Dose: 40 mg Pneumococcal Polyvalent Vaccine (Pneumovax 23 Vaccine) 0.5 ml IM .ONCE ONE Stop: 10/27/17 10:01 - Labs Labs: 10/26/17 08:33 10/26/17 08:33 PT 13.4 SECONDS (9.7-12.2) H 10/24/17 22:39 INR 1.2 10/24/17 22:39 APTT 22 SECONDS (21-34) 10/24/17 22:39
[2017-10-26] MEDS ORDERED: Potassium Chloride 20 mEq ER Tab PO ONE (14:22)
[2017-10-26] MEDS: Piperacill/Tazo 3.375gm in Dex 3.375 GM/50 ML BAG IVPB SCH (19:00)
[2017-10-27] MEDS: guaiFENesin DM 100 mg-10 mg/5 ml UD PO SCH ×4 (00:24→18:00)
[2017-10-27] MEDS: DEXTROSE 5% IVPB SCH ×3 (01:05→12:59)
[2017-10-27] MEDS: WATER IVPB SCH ×3 (01:05→12:59)
[2017-10-27] MEDS: VANCOMYCIN IVPB SCH ×3 (01:05→12:59)
[2017-10-27] MEDS: Albuterol-Ipratrop 3 mg / 0.5 (3 ml) UD INH SCH ×4 (01:26→20:18)
[2017-10-27] MEDS: Piperacill/Tazo 3.375gm in Dex 3.375 GM/50 ML BAG IVPB SCH ×2 (02:19→10:21)
[2017-10-27] MEDS: (Novolin R) Insulin Human Regular 100 units/ml vial SC SCH ×4 (08:08→22:00)
[2017-10-27] MEDS ORDERED: Pneumococcal 23-Valent Vaccine IM ONE (10:00)
[2017-10-27] MEDS: Lactobacillus Acidophilus 500 MU Cap PO SCH ×2 (10:12→17:38)
[2017-10-27] MEDS: Enoxaparin 30 mg Syringe SC SCH ×2 (10:20→21:09)
[2017-10-27] MEDS ORDERED: Influenza Vaccine 60 mcg/0.5 mL SYR (4YR UP) IM ONE (10:56)
--- NOTE | 2017-10-27 13:56 | CP.PCM.PN ---
Subjective - Date & Time of Evaluation Date of Evaluation: 10/27/17 Time of Evaluation: 13:56 - Subjective Subjective: CHIEF COMPLAINTS TODAY : LEFT CALF PAIN LOW GRADE TEMP ROS. HEENT : N. Resp : No cough, wheezing ,pleuritic CP ,or hemoptysis Cardio : No anginal CP, PND, orthopnea, palpitation GI : No abd.pain, n/v ,diarrhea or GI bleeding . 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 Musculoskel : No joint swelling , Derm : No rash Psych : Normal affect. Ext : No swelling , POS L calf pain PE. Pt. is alert awake in no distress. V.S As noted in the chart Head ,ear nose,throat and eyes : Normal. Neck : Supple with normal carotids. Lungs: Clear air entry. Heart : S1 & S2 normal with S4. No murmur. Abd : Soft non tender with normal bowel sounds. Neuro : Moves all ext. with no localized deficit. Ext : DOMINICK CH. LYMPHEDEMA WITH SWOLLEN TENDER LEFT CALF Derm : No rashes or decubitus ulcer. LABS/RADIOLOGY: DOPPLER NEG DVT SUGARS ARE UP ASSESSMENT/PLAN : ADD METFORMIN + GLIPIZIDE IV AB Objective - Vital Signs/Intake and Output Vital Signs (last 24 hours): Temp Pulse Resp BP Pulse Ox 99.7 F H 90 20 123/75 95 10/27/17 08:06 10/27/17 08:06 10/27/17 08:06 10/27/17 08:06 10/27/17 08:06 Intake and Output: 10/27/17 10/27/17 11:59 23:59 Intake Total 490 Balance 490 - Medications Medications: Current Medications Acetaminophen (Tylenol 325mg Tab) 650 mg PO Q6 PRN PRN Reason: FEVER/ PAIN Last Admin: 10/26/17 10:04 Dose: 650 mg Albuterol/Ipratropium (Duoneb 3 Mg/0.5 Mg (3 Ml) Ud) 3 ml INH RQ6 [facility] Last Admin: 10/27/17 13:16 Dose: Not Given Bumetanide (Bumex) 1 mg PO DAILY [facility] Last Admin: 10/27/17 12:19 Dose: 1 mg Diphenhydramine HCl (Benadryl) 25 mg PO Q6 PRN PRN Reason: Itching / Pruritus Enoxaparin Sodium (Lovenox) 30 mg SC Q12 [facility] Last Admin: 10/27/17 10:20 Dose: 30 mg Glipizide (Glucotrol) 5 mg PO ACB [facility] Last Admin: 10/27/17 10:19 Dose: 5 mg Guaifenesin/Dextromethorphan (Robitussin Dm) 5 ml PO Q6 [facility] Last Admin: 10/27/17 12:20 Dose: 5 ml Vancomycin HCl 1,250 mg/ (Dextrose) 250 mls @ 120 mls/hr IVPB Q12H [facility] Last Admin: 10/27/17 12:59 Dose: 120 mls/hr Piperacillin Sod/Tazobactam Sod (Zosyn 3.375 Gm Iv Premix) 3.375 gm in 50 mls @ 200 mls/hr IVPB Q8H [facility] Last Admin: 10/27/17 10:21 Dose: Not Given Insulin Human Regular (Novolin R) 0 unit SC ACHS [facility] PRN Reason: Protocol Last Admin: 10/27/17 12:19 Dose: 6 unit Lactobacillus Acidophilus (Bacid Acidophilus) 1 cap PO BID [facility] Last Admin: 10/27/17 10:12 Dose: 1 cap Lisinopril (Zestril) 40 mg PO DAILY [facility] Last Admin: 10/27/17 10:19 Dose: 40 mg Metformin HCl (Glucophage) 1,000 mg PO BIDCC [facility] - Labs Labs: 10/26/17 08:33 10/26/17 08:33 PT 13.4 SECONDS (9.7-12.2) H 10/24/17 22:39 INR 1.2 10/24/17 22:39 APTT 22 SECONDS (21-34) 10/24/17 22:39
--- NOTE | 2017-10-27 15:49 | NM ---
COMPARISON: 10/25/2017 single-view chest TECHNIQUE: 8.8 mCi technetium 99-m Xe-133 Gas. 4.3 mCI technetium 99-m MAA administered intravenously. FINDINGS: VENTILATION COMPONENT: Heterogeneous ventilation particularly in the left upper lobe PERFUSION COMPONENT: Heterogeneous profusion, matched finding in the left upper lobe. IMPRESSION: Matched heterogeneous ventilation and perfusion defects left upper lobe. Low probability ventilation perfusion scan for pulmonary embolism.
--- NOTE | 2017-10-27 22:21 | CP.PCM.PN ---
Subjective - Date & Time of Evaluation Date of Evaluation: 10/27/17 Time of Evaluation: 22:21 - Subjective Subjective: CHIEF COMPLAINTS TODAY : SPIKED A TEMPERATURE TO 102 REPORTED BY RN .MS NARVAEZ c/o generalized itching generalized maculo-papular rash on trunk abdomen and arms and lower extremities noted ? zosyn ? ROS. HEENT : N. Resp : No cough, wheezing ,pleuritic CP ,or hemoptysis Cardio : No anginal CP, PND, orthopnea, palpitation GI : No abd.pain, n/v ,diarrhea or GI bleeding . 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 Musculoskel : No joint swelling , Derm : generalized maculo-papular rash on trunk abdomen and arms and lower extremities noted ? zosyn Psych : Normal affect. Ext : +VE SWELLING , POS L CALF PAIN. PE. Pt. is alert awake in no distress. V.S As noted in the chart Head ,ear nose,throat and eyes : Normal. Neck : Supple with normal carotids. Lungs: Clear air entry. Heart : S1 & S2 normal with S4. No murmur. Abd : Soft non tender with normal bowel sounds. Neuro : Moves all ext. with no localized deficit. Ext : DOMINICK CH. LYMPHEDEMA WITH SWOLLEN TENDER LEFT CALF > RT. Derm : generalized maculo-papular rash on trunk abdomen and arms and lower extremities noted ? zosyn LABS/RADIOLOGY: DOPPLER NEG DVT wbc 10.9. SUGARS 425 CREAT 1.1 / BUN 9 LFTS NORMAL BLOOD CULTURES 10/24/17 -VE GROWTH SO FAR. ASSESSMENT; GENERALIZED RASH : ? ZOSYN LEFT LOWER EXTREMITY CELLULITIS?STAPH/OR STREP BILATERAL LOWER EXTREMITY LYMPHEDEMA.. NEW ONSET DIABETES MELLITUS. MORBID OBESITY. JUAN /PLAN : BLOOD CULTURES 2 15 MINUTES APART STAT. DC IV ZOSYN 3.375 EVERY 8 HOURLY 10/24/17. CONTINUE iv VANCOMYCIN 1250 MG iv EVERY 12 HOURLY 10/24/17. fOLLOW-UP VANCO TROUGH LEVEL PRIOR TO THE FOURTH DOSE AND KEEP BETWEEN 10 AND 20. bENADRYL 25 MG BY MOUTH WHEN NECESSARY EVERY 6 HOURLY FOR ITCHING. ADEQUATE CONTROL OF SUGARS ADDED METFORMIN BY PMD. Objective - Vital Signs/Intake and Output Vital Signs (last 24 hours): Temp Pulse Resp BP Pulse Ox 98.7 F 97 H 20 166/90 H 98 10/27/17 15:00 10/27/17 15:00 10/27/17 15:00 10/27/17 15:00 10/27/17 15:00 Intake and Output: 10/27/17 10/28/17 18:59 06:59 Intake Total 1050 Balance 1050 - Medications Medications: Current Medications Acetaminophen (Tylenol 325mg Tab) 650 mg PO Q6 PRN PRN Reason: FEVER/ PAIN Last Admin: 10/26/17 10:04 Dose: 650 mg Albuterol/Ipratropium (Duoneb 3 Mg/0.5 Mg (3 Ml) Ud) 3 ml INH RQ6 [facility] Last Admin: 10/27/17 20:18 Dose: Not Given Bumetanide (Bumex) 1 mg PO DAILY [facility] Last Admin: 10/27/17 12:19 Dose: 1 mg Diphenhydramine HCl (Benadryl) 25 mg PO Q6 PRN PRN Reason: Itching / Pruritus Enoxaparin Sodium (Lovenox) 30 mg SC Q12 [facility] Last Admin: 10/27/17 21:09 Dose: 30 mg Glipizide (Glucotrol) 5 mg PO ACB [facility] Last Admin: 10/27/17 10:19 Dose: 5 mg Guaifenesin/Dextromethorphan (Robitussin Dm) 5 ml PO Q6 [facility] Last Admin: 10/27/17 12:20 Dose: 5 ml Vancomycin HCl 1,250 mg/ (Dextrose) 250 mls @ 120 mls/hr IVPB Q12H [facility] Last Admin: 10/27/17 12:59 Dose: 120 mls/hr Piperacillin Sod/Tazobactam Sod (Zosyn 3.375 Gm Iv Premix) 3.375 gm in 50 mls @ 200 mls/hr IVPB Q8H [facility] Last Admin: 10/27/17 10:21 Dose: Not Given Insulin Human Regular (Novolin R) 0 unit SC ACHS [facility] PRN Reason: Protocol Last Admin: 10/27/17 16:30 Dose: 2 unit Lactobacillus Acidophilus (Bacid Acidophilus) 1 cap PO BID [facility] Last Admin: 10/27/17 17:38 Dose: 1 cap Lisinopril (Zestril) 40 mg PO DAILY [facility] Last Admin: 10/27/17 10:19 Dose: 40 mg Metformin HCl (Glucophage) 1,000 mg PO BIDCC [facility] Last Admin: 10/27/17 17:31 Dose: 1,000 mg - Labs Labs: 10/26/17 08:33 10/26/17 08:33 PT 13.4 SECONDS (9.7-12.2) H 10/24/17 22:39 INR 1.2 10/24/17 22:39 APTT 22 SECONDS (21-34) 10/24/17 22:39
[2017-10-28] MEDS: DEXTROSE 5% IVPB SCH ×2 (00:09→10:49)
[2017-10-28] MEDS: VANCOMYCIN IVPB SCH ×2 (00:09→10:49)
[2017-10-28] MEDS: WATER IVPB SCH ×2 (00:09→10:49)
[2017-10-28] MEDS: guaiFENesin DM 100 mg-10 mg/5 ml UD PO SCH ×4 (00:23→17:43)
[2017-10-28] MEDS: Albuterol-Ipratrop 3 mg / 0.5 (3 ml) UD INH SCH ×4 (01:44→19:42)
[2017-10-28] MEDS: (Novolin R) Insulin Human Regular 100 units/ml vial SC SCH ×4 (08:25→21:32)
[2017-10-28] MEDS: Lactobacillus Acidophilus 500 MU Cap PO SCH ×2 (10:01→17:43)
[2017-10-28] MEDS: Enoxaparin 30 mg Syringe SC SCH ×2 (10:01→21:14)
--- NOTE | 2017-10-28 14:03 | CP.PCM.PN ---
Subjective - Date & Time of Evaluation Date of Evaluation: 10/28/17 Time of Evaluation: 14:03 - Subjective Subjective: CHIEF COMPLAINTS TODAY : LEFT CALF PAIN LOW GRADE TEMP ROS. HEENT : N. Resp : No cough, wheezing ,pleuritic CP ,or hemoptysis Cardio : No anginal CP, PND, orthopnea, palpitation GI : No abd.pain, n/v ,diarrhea or GI bleeding . 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 Musculoskel : No joint swelling , Derm : No rash Psych : Normal affect. Ext : No swelling , POS L calf pain PE. Pt. is alert awake in no distress. V.S As noted in the chart Head ,ear nose,throat and eyes : Normal. Neck : Supple with normal carotids. Lungs: Clear air entry. Heart : S1 & S2 normal with S4. No murmur. Abd : Soft non tender with normal bowel sounds. Neuro : Moves all ext. with no localized deficit. Ext : DOMINICK CH. LYMPHEDEMA WITH SWOLLEN TENDER LEFT CALF Derm : No rashes or decubitus ulcer. LABS/RADIOLOGY: DOPPLER NEG DVT SUGARS ARE UP ASSESSMENT/PLAN : ADD METFORMIN + GLIPIZIDE INCREASE DOSE IV AB Objective - Vital Signs/Intake and Output Vital Signs (last 24 hours): Temp Pulse Resp BP Pulse Ox 99.9 F H 98 H 20 158/85 H 96 10/28/17 00:00 10/28/17 00:00 10/28/17 00:00 10/28/17 00:00 10/28/17 00:00 Intake and Output: 10/28/17 10/28/17 11:59 23:59 Intake Total 490 Balance 490 - Medications Medications: Current Medications Acetaminophen (Tylenol 325mg Tab) 650 mg PO Q6 PRN PRN Reason: FEVER/ PAIN Last Admin: 10/26/17 10:04 Dose: 650 mg Albuterol/Ipratropium (Duoneb 3 Mg/0.5 Mg (3 Ml) Ud) 3 ml INH RQ6 [facility] Last Admin: 10/28/17 13:13 Dose: Not Given Bumetanide (Bumex) 1 mg PO DAILY [facility] Last Admin: 10/28/17 10:01 Dose: 1 mg Diphenhydramine HCl (Benadryl) 25 mg PO Q6 PRN PRN Reason: Itching / Pruritus Last Admin: 10/28/17 00:39 Dose: 25 mg Enoxaparin Sodium (Lovenox) 30 mg SC Q12 [facility] Last Admin: 10/28/17 10:01 Dose: 30 mg Glipizide (Glucotrol) 5 mg PO ACB [facility] Last Admin: 10/28/17 08:33 Dose: 5 mg Guaifenesin/Dextromethorphan (Robitussin Dm) 5 ml PO Q6 [facility] Last Admin: 10/28/17 11:33 Dose: 5 ml Vancomycin HCl 1,250 mg/ (Dextrose) 250 mls @ 120 mls/hr IVPB Q12H [facility] Last Admin: 10/28/17 10:49 Dose: 120 mls/hr Insulin Human Regular (Novolin R) 0 unit SC ACHS [facility] PRN Reason: Protocol Last Admin: 10/28/17 11:31 Dose: 4 unit Lactobacillus Acidophilus (Bacid Acidophilus) 1 cap PO BID [facility] Last Admin: 10/28/17 10:01 Dose: 1 cap Lisinopril (Zestril) 40 mg PO DAILY [facility] Last Admin: 10/28/17 10:01 Dose: 40 mg Metformin HCl (Glucophage) 1,000 mg PO BIDCC [facility] Last Admin: 10/28/17 08:33 Dose: 1,000 mg - Labs Labs: 10/26/17 08:33 10/26/17 08:33 PT 13.4 SECONDS (9.7-12.2) H 10/24/17 22:39 INR 1.2 10/24/17 22:39 APTT 22 SECONDS (21-34) 10/24/17 22:39
[2017-10-28] MEDS: Hydrocortisone 1% Cream (30 GM) TOP SCH (17:50)
--- NOTE | 2017-10-28 21:41 | CP.PCM.PN ---
Subjective - Date & Time of Evaluation Date of Evaluation: 10/28/17 Time of Evaluation: 21:41 - Subjective Subjective: CHIEF COMPLAINTS TODAY : TEMP LOW-GRADE c/o generalized itching WITH generalized maculo-papular rash on trunk abdomen and arms and lower extremities noted ? zosyn ? ? VANCO. ROS. HEENT : N. Resp : No cough, wheezing ,pleuritic CP ,or hemoptysis Cardio : No anginal CP, PND, orthopnea, palpitation GI : No abd.pain, n/v ,diarrhea or GI bleeding . 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 Musculoskel : No joint swelling , Derm : generalized maculo-papular rash on trunk abdomen and arms and lower extremities noted ? zosyn Psych : Normal affect. Ext : +VE SWELLING , POS L CALF PAIN. PE. Pt. is alert awake in no distress. V.S As noted in the chart Head ,ear nose,throat and eyes : Normal. Neck : Supple with normal carotids. Lungs: Clear air entry. Heart : S1 & S2 normal with S4. No murmur. Abd : Soft non tender with normal bowel sounds. Neuro : Moves all ext. with no localized deficit. Ext : DOMINICK CH. LYMPHEDEMA WITH SWOLLEN TENDER LEFT CALF > RT. Derm : generalized maculo-papular rash on trunk abdomen and arms and lower extremities noted ? zosyn LABS/RADIOLOGY: vANCO LEVEL LESS THAN 5. ? dONE ONLY ON THE SECOND DOSE. DOPPLER NEG DVT wbc 10.9. SUGARS 425 CREAT 1.1 / BUN 9 LFTS NORMAL BLOOD CULTURES 10/24/17 -VE GROWTH SO FAR. ASSESSMENT; GENERALIZED RASH : ? ZOSYN LEFT LOWER EXTREMITY CELLULITIS?STAPH/OR STREP BILATERAL LOWER EXTREMITY LYMPHEDEMA.. NEW ONSET DIABETES MELLITUS. MORBID OBESITY. JUAN /PLAN : CANCEL VANCO LEVELS FOR TOMORROW DC IV VANCOMYCIN. sOLU-mEDROL 125 MG 1 DOSE. start IV daptomycin 4 mg/kg IV piggyback once a day daily.10/28/17. NOTIFY PHARMACY PATIENT IS ALLERGIC TO PENICILLIN, PATIENT ALSO HAD RASH ON REVIEWING THE PREVIOUS RECORDS TO IMIPENEM. FOLLOW-UP CULTURES TO ADJUST ANTIBIOTICS. BENADRYL 25 MG BY MOUTH WHEN NECESSARY EVERY 6 HOURLY FOR ITCHING. ADEQUATE CONTROL OF SUGARS Objective - Vital Signs/Intake and Output Vital Signs (last 24 hours): Temp Pulse Resp BP Pulse Ox 99.6 F 94 H 20 128/71 100 10/28/17 16:00 10/28/17 16:00 10/28/17 16:00 10/28/17 16:00 10/28/17 16:00 Intake and Output: 10/28/17 10/29/17 18:59 06:59 Intake Total 1340 Balance 1340 - Medications Medications: Current Medications Acetaminophen (Tylenol 325mg Tab) 650 mg PO Q6 PRN PRN Reason: FEVER/ PAIN Last Admin: 10/26/17 10:04 Dose: 650 mg Albuterol/Ipratropium (Duoneb 3 Mg/0.5 Mg (3 Ml) Ud) 3 ml INH RQ6 [facility] Last Admin: 10/28/17 19:42 Dose: Not Given Bumetanide (Bumex) 1 mg PO DAILY [facility] Last Admin: 10/28/17 10:01 Dose: 1 mg Diphenhydramine HCl (Benadryl) 25 mg PO Q6 PRN PRN Reason: Itching / Pruritus Last Admin: 10/28/17 17:11 Dose: 25 mg Enoxaparin Sodium (Lovenox) 30 mg SC Q12 [facility] Last Admin: 10/28/17 21:14 Dose: 30 mg Glipizide (Glucotrol) 5 mg PO BID [facility] Last Admin: 10/28/17 17:43 Dose: 5 mg Guaifenesin/Dextromethorphan (Robitussin Dm) 5 ml PO Q6 [facility] Last Admin: 10/28/17 17:43 Dose: 5 ml Hydrocortisone (Cortizone 1% Cream) 0 gm TOP BID [facility] Last Admin: 10/28/17 17:50 Dose: 1 applic Insulin Human Regular (Novolin R) 0 unit SC ACHS [facility] PRN Reason: Protocol Last Admin: 10/28/17 21:32 Dose: Not Given Lactobacillus Acidophilus (Bacid Acidophilus) 1 cap PO BID [facility] Last Admin: 10/28/17 17:43 Dose: 1 cap Lisinopril (Zestril) 40 mg PO DAILY [facility] Last Admin: 10/28/17 10:01 Dose: 40 mg Metformin HCl (Glucophage) 1,000 mg PO BIDCC [facility] Last Admin: 10/28/17 17:11 Dose: 1,000 mg - Labs Labs: 10/26/17 08:33 10/26/17 08:33 PT 13.4 SECONDS (9.7-12.2) H 10/24/17 22:39 INR 1.2 10/24/17 22:39 APTT 22 SECONDS (21-34) 10/24/17 22:39
[2017-10-29] MEDS: guaiFENesin DM 100 mg-10 mg/5 ml UD PO SCH ×4 (00:44→17:35)
[2017-10-29] MEDS: Albuterol-Ipratrop 3 mg / 0.5 (3 ml) UD INH SCH ×4 (01:20→19:41)
[2017-10-29] MEDS: (Novolin R) Insulin Human Regular 100 units/ml vial SC SCH ×4 (08:25→21:41)
[2017-10-29 08:40] VITALS: RESP 20
[2017-10-29] MEDS: Lactobacillus Acidophilus 500 MU Cap PO SCH ×2 (10:40→17:35)
[2017-10-29] MEDS: Enoxaparin 30 mg Syringe SC SCH ×2 (10:40→21:14)
[2017-10-29] MEDS: Hydrocortisone 1% Cream (30 GM) TOP SCH ×2 (10:42→19:00)
--- NOTE | 2017-10-29 14:32 | CP.PCM.PN ---
Subjective - Date & Time of Evaluation Date of Evaluation: 10/29/17 Time of Evaluation: 14:31 - Subjective Subjective: CHIEF COMPLAINTS TODAY : LEFT CALF PAIN LOW GRADE TEMP RASH DOWN ROS. HEENT : N. Resp : No cough, wheezing ,pleuritic CP ,or hemoptysis Cardio : No anginal CP, PND, orthopnea, palpitation GI : No abd.pain, n/v ,diarrhea or GI bleeding . 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 Musculoskel : No joint swelling , Derm : No rash Psych : Normal affect. Ext : No swelling , POS L calf pain PE. Pt. is alert awake in no distress. V.S As noted in the chart Head ,ear nose,throat and eyes : Normal. Neck : Supple with normal carotids. Lungs: Clear air entry. Heart : S1 & S2 normal with S4. No murmur. Abd : Soft non tender with normal bowel sounds. Neuro : Moves all ext. with no localized deficit. Ext : DOMINICK CH. LYMPHEDEMA WITH SWOLLEN TENDER LEFT CALF Derm : No rashes or decubitus ulcer. LABS/RADIOLOGY: DOPPLER NEG DVT SUGARS ARE UP ASSESSMENT/PLAN : ADD METFORMIN + GLIPIZIDE INCREASE DOSE IV AB Objective - Vital Signs/Intake and Output Vital Signs (last 24 hours): Temp Pulse Resp BP Pulse Ox 98.7 F 92 H 20 133/77 97 10/29/17 08:38 10/29/17 08:38 10/29/17 08:38 10/29/17 08:38 10/29/17 08:38 Intake and Output: 10/29/17 10/29/17 11:59 23:59 Intake Total 500 Balance 500 - Medications Medications: Current Medications Acetaminophen (Tylenol 325mg Tab) 650 mg PO Q6 PRN PRN Reason: FEVER/ PAIN Last Admin: 10/26/17 10:04 Dose: 650 mg Albuterol/Ipratropium (Duoneb 3 Mg/0.5 Mg (3 Ml) Ud) 3 ml INH RQ6 [facility] Last Admin: 10/29/17 13:28 Dose: Not Given Bumetanide (Bumex) 1 mg PO DAILY [facility] Last Admin: 10/29/17 10:40 Dose: 1 mg Diphenhydramine HCl (Benadryl) 25 mg PO Q6 PRN PRN Reason: Itching / Pruritus Last Admin: 10/29/17 06:00 Dose: 25 mg Enoxaparin Sodium (Lovenox) 30 mg SC Q12 [facility] Last Admin: 10/29/17 10:40 Dose: 30 mg Glipizide (Glucotrol) 10 mg PO BID [facility] Guaifenesin/Dextromethorphan (Robitussin Dm) 5 ml PO Q6 [facility] Last Admin: 10/29/17 12:23 Dose: 5 ml Hydrocortisone (Cortizone 1% Cream) 0 gm TOP BID [facility] Last Admin: 10/29/17 10:42 Dose: 1 applic Daptomycin 690 mg/ Sodium (Chloride) 100 mls @ 100 mls/hr IV Q24H [facility] Stop: 11/02/17 22:31 Last Admin: 10/28/17 22:39 Dose: 100 mls/hr Insulin Glargine (Lantus) 20 unit SC HS [facility] Insulin Human Regular (Novolin R) 0 unit SC ACHS [facility] PRN Reason: Protocol Last Admin: 10/29/17 12:24 Dose: 10 unit Lactobacillus Acidophilus (Bacid Acidophilus) 1 cap PO BID [facility] Last Admin: 10/29/17 10:40 Dose: 1 cap Lisinopril (Zestril) 40 mg PO DAILY [facility] Last Admin: 10/29/17 10:40 Dose: 40 mg [facility] Last Admin: 10/29/17 08:35 Dose: 1,000 mg - Labs Labs: 10/26/17 08:33 10/26/17 08:33 PT 13.4 SECONDS (9.7-12.2) H 10/24/17 22:39 INR 1.2 10/24/17 22:39 APTT 22 SECONDS (21-34) 10/24/17 22:39
--- NOTE | 2017-10-29 20:48 | CP.PCM.PN ---
Subjective - Date & Time of Evaluation Date of Evaluation: 10/29/17 Time of Evaluation: 20:48 - Subjective Subjective: CHIEF COMPLAINTS TODAY : TEMP down LESS itching ! generalized maculo-papular rash on trunk abdomen and arms and lower extremities noted ? zosyn PT TOLERATING IV DAPTOMYCIN ROS. HEENT : N. Resp : No cough, wheezing ,pleuritic CP ,or hemoptysis Cardio : No anginal CP, PND, orthopnea, palpitation GI : No abd.pain, n/v ,diarrhea or GI bleeding . 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 Musculoskel : No joint swelling , Derm : generalized maculo-papular rash on trunk abdomen and arms and lower extremities ? zosyn Psych : Normal affect. Ext : +VE SWELLING , POS L CALF PAIN. PE. Pt. is alert awake in no distress. V.S As noted in the chart Head ,ear nose,throat and eyes : Normal. Neck : Supple with normal carotids. Lungs: Clear air entry. Heart : S1 & S2 normal with S4. No murmur. Abd : Soft non tender with normal bowel sounds. Neuro : Moves all ext. with no localized deficit. Ext : DOMINICK CH. LYMPHEDEMA WITH SWOLLEN TENDER LEFT CALF > RT. Derm : generalized maculo-papular rash on trunk abdomen and arms and lower extremities most probably 2 to ? zosyn LABS/RADIOLOGY: DOPPLER NEG DVT wbc 10.9. SUGARS 425 CREAT 1.1 / BUN 9 LFTS NORMAL BLOOD CULTURES 10/24/17 -VE GROWTH SO FAR. ASSESSMENT; GENERALIZED RASH : ? ZOSYN LEFT LOWER EXTREMITY CELLULITIS?STAPH/OR STREP BILATERAL LOWER EXTREMITY LYMPHEDEMA.. NEW ONSET DIABETES MELLITUS. MORBID OBESITY. JUAN /PLAN : OFF OV ZOSYN OFF IV VANCOMYCIN. SOLU-mEDROL 125 MG 1 DOSE.10/28/17 CONTINUE IV daptomycin 4 mg/kg IV piggyback once a day daily.10/28/17. NOTIFY PHARMACY PATIENT IS ALLERGIC TO PENICILLIN, PATIENT ALSO HAD RASH ON REVIEWING THE PREVIOUS RECORDS TO IMIPENEM. FOLLOW-UP CULTURES TO ADJUST ANTIBIOTICS. BENADRYL 25 MG BY MOUTH WHEN NECESSARY EVERY 6 HOURLY FOR ITCHING. ADEQUATE CONTROL OF SUGARS Objective - Vital Signs/Intake and Output Vital Signs (last 24 hours): Temp Pulse Resp BP Pulse Ox 98.2 F 94 H 20 153/66 H 95 10/29/17 16:00 10/29/17 16:00 10/29/17 16:00 10/29/17 16:00 10/29/17 16:00 Intake and Output: 10/29/17 10/30/17 18:59 06:59 Intake Total 500 Balance 500 - Medications Medications: Current Medications Acetaminophen (Tylenol 325mg Tab) 650 mg PO Q6 PRN PRN Reason: FEVER/ PAIN Last Admin: 10/26/17 10:04 Dose: 650 mg Albuterol/Ipratropium (Duoneb 3 Mg/0.5 Mg (3 Ml) Ud) 3 ml INH RQ6 [facility] Last Admin: 10/29/17 19:41 Dose: Not Given Bumetanide (Bumex) 1 mg PO DAILY [facility] Last Admin: 10/29/17 10:40 Dose: 1 mg Diphenhydramine HCl (Benadryl) 25 mg PO Q6 PRN PRN Reason: Itching / Pruritus Last Admin: 10/29/17 06:00 Dose: 25 mg Enoxaparin Sodium (Lovenox) 30 mg SC Q12 [facility] Last Admin: 10/29/17 10:40 Dose: 30 mg Glipizide (Glucotrol) 10 mg PO BID [facility] Last Admin: 10/29/17 17:35 Dose: 10 mg Guaifenesin/Dextromethorphan (Robitussin Dm) 5 ml PO Q6 [facility] Last Admin: 10/29/17 17:35 Dose: 5 ml Hydrocortisone (Cortizone 1% Cream) 0 gm TOP BID [facility] Last Admin: 10/29/17 10:42 Dose: 1 applic Daptomycin 690 mg/ Sodium (Chloride) 100 mls @ 100 mls/hr IV Q24H [facility] Stop: 11/02/17 22:31 Last Admin: 10/28/17 22:39 Dose: 100 mls/hr Insulin Glargine (Lantus) 20 unit SC HS [facility] Insulin Human Regular (Novolin R) 0 unit SC ACHS [facility] PRN Reason: Protocol Last Admin: 10/29/17 17:39 Dose: 6 unit Lactobacillus Acidophilus (Bacid Acidophilus) 1 cap PO BID [facility] Last Admin: 10/29/17 17:35 Dose: 1 cap Lisinopril (Zestril) 40 mg PO DAILY [facility] Last Admin: 10/29/17 10:40 Dose: 40 mg Metformin HCl (Glucophage) 1,000 mg PO BIDCC [facility] Last Admin: 10/29/17 17:35 Dose: 1,000 mg - Labs Labs: 10/26/17 08:33 10/26/17 08:33 PT 13.4 SECONDS (9.7-12.2) H 10/24/17 22:39 INR 1.2 10/24/17 22:39 APTT 22 SECONDS (21-34) 10/24/17 22:39
[2017-10-29] MEDS: (Lantus) Insulin Glargine, Recombinant SC SCH (21:40)
[2017-10-30] MEDS: guaiFENesin DM 100 mg-10 mg/5 ml UD PO SCH ×4 (00:20→17:11)
[2017-10-30] MEDS: Albuterol-Ipratrop 3 mg / 0.5 (3 ml) UD INH SCH ×3 (01:08→13:43)
[2017-10-30] MEDS: (Novolin R) Insulin Human Regular 100 units/ml vial SC SCH ×4 (08:21→22:18)
[2017-10-30] MEDS: Enoxaparin 30 mg Syringe SC SCH ×2 (09:41→22:35)
[2017-10-30] MEDS: Hydrocortisone 1% Cream (30 GM) TOP SCH ×2 (09:41→17:11)
[2017-10-30] MEDS: Lactobacillus Acidophilus 500 MU Cap PO SCH ×2 (09:42→17:11)
--- NOTE | 2017-10-30 15:24 | CP.PCM.PN ---
Subjective - Date & Time of Evaluation Date of Evaluation: 10/30/17 Time of Evaluation: 15:23 - Subjective Subjective: CHIEF COMPLAINTS TODAY : LEFT CALF PAIN SUGARS UP RASH DOWN ROS. HEENT : N. Resp : No cough, wheezing ,pleuritic CP ,or hemoptysis Cardio : No anginal CP, PND, orthopnea, palpitation GI : No abd.pain, n/v ,diarrhea or GI bleeding . 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 Musculoskel : No joint swelling , Derm : No rash Psych : Normal affect. Ext : No swelling , POS L calf pain PE. Pt. is alert awake in no distress. V.S As noted in the chart Head ,ear nose,throat and eyes : Normal. Neck : Supple with normal carotids. Lungs: Clear air entry. Heart : S1 & S2 normal with S4. No murmur. Abd : Soft non tender with normal bowel sounds. Neuro : Moves all ext. with no localized deficit. Ext : DOMINICK CH. LYMPHEDEMA WITH SWOLLEN TENDER LEFT CALF Derm : No rashes or decubitus ulcer. LABS/RADIOLOGY: DOPPLER NEG DVT SUGARS ARE UP ASSESSMENT/PLAN : ADD METFORMIN + GLIPIZIDE INCREASE DOSE IV AB Objective - Vital Signs/Intake and Output Vital Signs (last 24 hours): Temp Pulse Resp BP Pulse Ox 98.1 F 92 H 20 159/75 H 97 10/30/17 07:54 10/30/17 07:54 10/30/17 07:54 10/30/17 07:54 10/30/17 07:54 Intake and Output: 10/30/17 10/30/17 11:59 23:59 Intake Total 240 500 Balance 240 500 - Medications Medications: Current Medications Acetaminophen (Tylenol 325mg Tab) 650 mg PO Q6 PRN PRN Reason: FEVER/ PAIN Last Admin: 10/26/17 10:04 Dose: 650 mg Bumetanide (Bumex) 1 mg PO DAILY [facility] Last Admin: 10/30/17 09:42 Dose: 1 mg Diphenhydramine HCl (Benadryl) 25 mg PO Q6 PRN PRN Reason: Itching / Pruritus Last Admin: 10/30/17 09:47 Dose: 25 mg Enoxaparin Sodium (Lovenox) 30 mg SC Q12 [facility] Last Admin: 10/30/17 09:41 Dose: 30 mg Glipizide (Glucotrol) 10 mg PO BID [facility] Last Admin: 10/30/17 09:42 Dose: 10 mg Guaifenesin/Dextromethorphan (Robitussin Dm) 5 ml PO Q6 [facility] Last Admin: 10/30/17 12:16 Dose: 5 ml Hydrocortisone (Cortizone 1% Cream) 0 gm TOP BID [facility] Last Admin: 10/30/17 09:41 Dose: 1 applic Daptomycin 690 mg/ Sodium (Chloride) 100 mls @ 100 mls/hr IV Q24H [facility] Stop: 11/02/17 22:31 Last Admin: 10/29/17 21:38 Dose: 100 mls/hr Insulin Glargine (Lantus) 20 unit SC HS [facility] Last Admin: 10/29/17 21:40 Dose: 20 unit Insulin Human Regular (Novolin R) 0 unit SC ACHS [facility] PRN Reason: Protocol Last Admin: 10/30/17 12:16 Dose: 6 unit Lactobacillus Acidophilus (Bacid Acidophilus) 1 cap PO BID [facility] Last Admin: 10/30/17 09:42 Dose: 1 cap Lisinopril (Zestril) 40 mg PO DAILY [facility] Last Admin: 10/30/17 09:42 Dose: 40 mg Metformin HCl (Glucophage) 1,000 mg PO BIDCC [facility] Last Admin: 10/30/17 08:21 Dose: 1,000 mg - Labs Labs: 10/26/17 08:33 10/26/17 08:33 PT 13.4 SECONDS (9.7-12.2) H 10/24/17 22:39 INR 1.2 10/24/17 22:39 APTT 22 SECONDS (21-34) 10/24/17 22:39
[2017-10-30] MEDS: (Lantus) Insulin Glargine, Recombinant SC SCH (22:35)
[2017-10-31] MEDS: guaiFENesin DM 100 mg-10 mg/5 ml UD PO SCH ×4 (00:30→18:16)
[2017-10-31] MEDS: (Novolin R) Insulin Human Regular 100 units/ml vial SC SCH ×4 (08:01→21:29)
[2017-10-31] MEDS: Lactobacillus Acidophilus 500 MU Cap PO SCH ×2 (09:27→18:16)
[2017-10-31] MEDS: Hydrocortisone 1% Cream (30 GM) TOP SCH ×2 (09:28→18:17)
[2017-10-31] MEDS: Enoxaparin 30 mg Syringe SC SCH ×2 (09:28→21:32)
--- NOTE | 2017-10-31 13:20 | CP.PCM.PN ---
Subjective - Date & Time of Evaluation Date of Evaluation: 10/31/17 Time of Evaluation: 13:20 - Subjective Subjective: CHIEF COMPLAINTS TODAY : LEFT CALF PAIN SUGARS UP RASH DOWN ROS. HEENT : N. Resp : No cough, wheezing ,pleuritic CP ,or hemoptysis Cardio : No anginal CP, PND, orthopnea, palpitation GI : No abd.pain, n/v ,diarrhea or GI bleeding . 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 Musculoskel : No joint swelling , Derm : No rash Psych : Normal affect. Ext : No swelling , POS L calf pain PE. Pt. is alert awake in no distress. V.S As noted in the chart Head ,ear nose,throat and eyes : Normal. Neck : Supple with normal carotids. Lungs: Clear air entry. Heart : S1 & S2 normal with S4. No murmur. Abd : Soft non tender with normal bowel sounds. Neuro : Moves all ext. with no localized deficit. Ext : DOMINICK CH. LYMPHEDEMA WITH SWOLLEN TENDER LEFT CALF Derm : No rashes or decubitus ulcer. LABS/RADIOLOGY: DOPPLER NEG DVT SUGARS ARE UP ASSESSMENT/PLAN : ADD METFORMIN + GLIPIZIDE INCREASE DOSE IV AB PICC LINE Objective - Vital Signs/Intake and Output Vital Signs (last 24 hours): Temp Pulse Resp BP Pulse Ox 98.6 F 91 H 20 154/85 H 98 10/31/17 07:53 10/31/17 07:53 10/31/17 07:53 10/31/17 07:53 10/31/17 07:53 Intake and Output: 10/31/17 10/31/17 11:59 23:59 Intake Total 400 Balance 400 - Medications Medications: Current Medications Acetaminophen (Tylenol 325mg Tab) 650 mg PO Q6 PRN PRN Reason: FEVER/ PAIN Last Admin: 10/26/17 10:04 Dose: 650 mg Bumetanide (Bumex) 1 mg PO DAILY [facility] Last Admin: 10/31/17 09:27 Dose: 1 mg Diphenhydramine HCl (Benadryl) 25 mg PO Q6 PRN PRN Reason: Itching / Pruritus Last Admin: 10/31/17 05:10 Dose: 25 mg Enoxaparin Sodium (Lovenox) 30 mg SC Q12 [facility] Last Admin: 10/31/17 09:28 Dose: 30 mg Glipizide (Glucotrol) 10 mg PO BID [facility] Last Admin: 10/31/17 09:27 Dose: 10 mg Guaifenesin/Dextromethorphan (Robitussin Dm) 5 ml PO Q6 [facility] Last Admin: 10/31/17 12:41 Dose: 5 ml Hydrocortisone (Cortizone 1% Cream) 0 gm TOP BID [facility] Last Admin: 10/31/17 09:28 Dose: 1 applic Daptomycin 690 mg/ Sodium (Chloride) 100 mls @ 100 mls/hr IV Q24H [facility] Stop: 11/02/17 22:31 Last Admin: 10/30/17 22:36 Dose: 100 mls/hr Insulin Glargine (Lantus) 20 unit SC HS [facility] Last Admin: 10/30/17 22:35 Dose: 20 unit Insulin Human Regular (Novolin R) 0 unit SC ACHS [facility] PRN Reason: Protocol Last Admin: 10/31/17 12:41 Dose: 3 unit Lactobacillus Acidophilus (Bacid Acidophilus) 1 cap PO BID [facility] Last Admin: 10/31/17 09:27 Dose: 1 cap Lisinopril (Zestril) 40 mg PO DAILY [facility] Last Admin: 10/31/17 09:27 Dose: 40 mg Metformin HCl (Glucophage) 1,000 mg PO BIDCC [facility] Last Admin: 10/31/17 08:01 Dose: 1,000 mg - Labs Labs: 10/26/17 08:33 10/26/17 08:33 PT 13.4 SECONDS (9.7-12.2) H 10/24/17 22:39 INR 1.2 10/24/17 22:39 APTT 22 SECONDS (21-34) 10/24/17 22:39
[2017-10-31] MEDS ORDERED: (Lantus) Insulin Glargine, Recombinant SC SCH (13:21)
--- NOTE | 2017-10-31 14:05 | CP.PCM.PN ---
Subjective - Date & Time of Evaluation Date of Evaluation: 10/31/17 Time of Evaluation: 14:05 - Subjective Subjective: CHIEF COMPLAINTS TODAY : afebrile LESS itching ! generalized maculo-papular rash on trunk abdomen and arms much improved PT TOLERATING IV DAPTOMYCIN ROS. HEENT : N. Resp : No cough, wheezing ,pleuritic CP ,or hemoptysis Cardio : No anginal CP, PND, orthopnea, palpitation GI : No abd.pain, n/v ,diarrhea or GI bleeding . 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 Musculoskel : No joint swelling , Derm : generalized maculo-papular rash on trunk abdomen and arms and lower extremities improving Psych : Normal affect. Ext : +VE SWELLING , POS L CALF PAIN. PE. Pt. is alert awake in no distress. V.S As noted in the chart Head ,ear nose,throat and eyes : Normal. Neck : Supple with normal carotids. Lungs: Clear air entry. Heart : S1 & S2 normal with S4. No murmur. Abd : Soft non tender with normal bowel sounds. Neuro : Moves all ext. with no localized deficit. Ext : DOMINICK CH. LYMPHEDEMA WITH SWOLLEN TENDER LEFT CALF > RT. Derm : generalized maculo-papular rash on trunk abdomen and arms and lower extremities improving LABS/RADIOLOGY: DOPPLER NEG DVT wbc 10.9. SUGARS 425 CREAT 1.1 / BUN 9 LFTS NORMAL BLOOD CULTURES 10/24/17 -VE GROWTH SO FAR. ASSESSMENT; GENERALIZED RASH : ? ZOSYN LEFT LOWER EXTREMITY CELLULITIS?STAPH/OR STREP BILATERAL LOWER EXTREMITY LYMPHEDEMA.. NEW ONSET DIABETES MELLITUS. MORBID OBESITY. JUAN /PLAN : PATIENT WILL NEED A PICC LINE CONTINUE IV daptomycin 4 mg/kg IV piggyback once a day daily.10/28/17. FOR 7 DAYS MORE BENADRYL 25 MG BY MOUTH WHEN NECESSARY EVERY 6 HOURLY FOR ITCHING. ADEQUATE CONTROL OF SUGARS CASE DISCUSSED WITH ATTENDING/AND ANNUAL GIVING OFFICER AND CSW. Objective - Vital Signs/Intake and Output Vital Signs (last 24 hours): Temp Pulse Resp BP Pulse Ox 98.6 F 91 H 20 154/85 H 98 10/31/17 07:53 10/31/17 07:53 10/31/17 07:53 10/31/17 07:53 10/31/17 07:53 Intake and Output: 10/31/17 10/31/17 06:59 18:59 Intake Total 1000 Balance 1000 - Medications Medications: Current Medications Acetaminophen (Tylenol 325mg Tab) 650 mg PO Q6 PRN PRN Reason: FEVER/ PAIN Last Admin: 10/26/17 10:04 Dose: 650 mg Bumetanide (Bumex) 1 mg PO DAILY [facility] Last Admin: 10/31/17 09:27 Dose: 1 mg Diphenhydramine HCl (Benadryl) 25 mg PO Q6 PRN PRN Reason: Itching / Pruritus Last Admin: 10/31/17 05:10 Dose: 25 mg Enoxaparin Sodium (Lovenox) 30 mg SC Q12 [facility] Last Admin: 10/31/17 09:28 Dose: 30 mg Glipizide (Glucotrol) 10 mg PO BID [facility] Last Admin: 10/31/17 09:27 Dose: 10 mg Guaifenesin/Dextromethorphan (Robitussin Dm) 5 ml PO Q6 [facility] Last Admin: 10/31/17 12:41 Dose: 5 ml Hydrocortisone (Cortizone 1% Cream) 0 gm TOP BID [facility] Last Admin: 10/31/17 09:28 Dose: 1 applic Daptomycin 690 mg/ Sodium (Chloride) 100 mls @ 100 mls/hr IV Q24H [facility] Stop: 11/02/17 22:31 Last Admin: 10/30/17 22:36 Dose: 100 mls/hr Insulin Glargine (Lantus) 30 unit SC HS [facility] Insulin Human Regular (Novolin R) 0 unit SC ACHS [facility] PRN Reason: Protocol Last Admin: 10/31/17 12:41 Dose: 3 unit Lactobacillus Acidophilus (Bacid Acidophilus) 1 cap PO BID [facility] Last Admin: 10/31/17 09:27 Dose: 1 cap Lisinopril (Zestril) 40 mg PO DAILY [facility] Last Admin: 10/31/17 09:27 Dose: 40 mg [facility] Last Admin: 10/31/17 08:01 Dose: 1,000 mg - Labs Labs: 10/26/17 08:33 10/26/17 08:33 PT 13.4 SECONDS (9.7-12.2) H 10/24/17 22:39 INR 1.2 10/24/17 22:39 APTT 22 SECONDS (21-34) 10/24/17 22:39
[2017-10-31 23:54] VITALS: O2SAT 96
[2017-11-01] MEDS: guaiFENesin DM 100 mg-10 mg/5 ml UD PO SCH ×3 (00:05→11:53)
[2017-11-01 07:41] VITALS: BP 135/77; PULSE 87; TEMP 98.1
[2017-11-01] MEDS: (Novolin R) Insulin Human Regular 100 units/ml vial SC SCH ×2 (08:30→11:50)
[2017-11-01] MEDS ORDERED: Lidocaine 2% Inj (20ml) ONE (10:01)
--- NOTE | 2017-11-01 10:40 | PCM.SURG1 ---
Surgeon's Initial Post Op Note - Surgeon's Notes Surgeon: Robbi Ramírez MD Kiln Maintenance: NONE Type of Anesthesia: Local Pre-Operative Diagnosis: Poor venous access Operative Findings: US showed patent right brachial vein. Post-Operative Diagnosis: Poor venous access Operation Performed: Single lumen picc, 39 cm, placement right brachial vein. Tip is in the SVC. Specimen/Specimens Removed: none Estimated Blood Loss: EBL {In ML}: 2 Blood Products Given: N/A Drains Used: No Drains Post-Op Condition: Fair Date of Surgery/Procedure: 11/01/17 Time of Surgery/Procedure: 10:35
[2017-11-01] MEDS: Lactobacillus Acidophilus 500 MU Cap PO SCH (10:55)
[2017-11-01] MEDS: Hydrocortisone 1% Cream (30 GM) TOP SCH (10:56)
[2017-11-01] MEDS: Enoxaparin 30 mg Syringe SC SCH (11:00)
--- NOTE | 2017-11-01 13:22 | CP.PCM.PN ---
Subjective - Date & Time of Evaluation Date of Evaluation: 11/01/17 Time of Evaluation: 13:22 Objective - Vital Signs/Intake and Output Vital Signs (last 24 hours): Temp Pulse Resp BP Pulse Ox 98.1 F 87 20 135/77 96 11/01/17 07:36 11/01/17 07:36 11/01/17 07:36 11/01/17 07:36 11/01/17 07:36 Intake and Output: 11/01/17 11/01/17 06:59 18:59 Intake Total 700 Output Total 400 Balance 300 - Medications Medications: Current Medications Acetaminophen (Tylenol 325mg Tab) 650 mg PO Q6 PRN PRN Reason: FEVER/ PAIN Last Admin: 10/26/17 10:04 Dose: 650 mg Bumetanide (Bumex) 1 mg PO DAILY [facility] Last Admin: 11/01/17 10:55 Dose: 1 mg Diphenhydramine HCl (Benadryl) 25 mg PO Q6 PRN PRN Reason: Itching / Pruritus Last Admin: 11/01/17 05:20 Dose: 25 mg Enoxaparin Sodium (Lovenox) 30 mg SC Q12 [facility] Last Admin: 11/01/17 11:00 Dose: 30 mg Glipizide (Glucotrol) 10 mg PO BID [facility] Last Admin: 11/01/17 11:00 Dose: 10 mg Guaifenesin/Dextromethorphan (Robitussin Dm) 5 ml PO Q6 [facility] Last Admin: 11/01/17 11:53 Dose: Not Given Hydrocortisone (Cortizone 1% Cream) 0 gm TOP BID [facility] Last Admin: 11/01/17 10:56 Dose: 1 applic Daptomycin 690 mg/ Sodium (Chloride) 100 mls @ 100 mls/hr IV Q24H [facility] Stop: 11/02/17 22:31 Last Admin: 10/31/17 21:33 Dose: 100 mls/hr Insulin Glargine (Lantus) 30 unit SC HS [facility] Last Admin: 10/31/17 21:32 Dose: 30 unit Insulin Human Regular (Novolin R) 0 unit SC ACHS [facility] PRN Reason: Protocol Last Admin: 11/01/17 11:50 Dose: 4 unit Lactobacillus Acidophilus (Bacid Acidophilus) 1 cap PO BID [facility] Last Admin: 11/01/17 10:55 Dose: 1 cap Lisinopril (Zestril) 40 mg PO DAILY [facility] Last Admin: 11/01/17 11:00 Dose: 40 mg Metformin HCl (Glucophage) 1,000 mg PO BIDCC [facility] Last Admin: 11/01/17 08:30 Dose: 1,000 mg - Labs Labs: 10/26/17 08:33 10/26/17 08:33 PT 13.4 SECONDS (9.7-12.2) H 10/24/17 22:39 INR 1.2 10/24/17 22:39 APTT 22 SECONDS (21-34) 10/24/17 22:39
--- NOTE | 2017-11-01 13:30 | CP.PCM.DIS ---
Provider - Provider Date of Admission: 10/24/17 23:07 Attending physician: Aaron Streeter MD Time Spent in preparation of Discharge (in minutes): 32 Hospital Course - Lab Results Lab Results: Micro Results 10/28/17 01:00 Blood-Venous Blood Culture - Preliminary NO GROWTH AFTER 4 DAYS 10/28/17 00:30 Blood-Venous Blood Culture - Preliminary NO GROWTH AFTER 4 DAYS 10/24/17 21:00 Blood Blood Culture - Final NO GROWTH AFTER 5 DAYS 10/24/17 21:00 Blood Gram Stain - Final TEST NOT PERFORMED 10/24/17 21:30 Blood Blood Culture - Final NO GROWTH AFTER 5 DAYS 10/24/17 21:30 Blood Gram Stain - Final TEST NOT PERFORMED Most Recent Lab Values WBC 10.9 K/uL (4.8-10.8) H 10/26/17 08:33 RBC 3.22 Mil/uL (4.40-5.90) L 10/26/17 08:33 Hgb 9.6 g/dL (12.0-18.0) L 10/26/17 08:33 Hct 27.6 % (35.0-51.0) L 10/26/17 08:33 MCV 85.8 fL (80.0-94.0) 10/26/17 08:33 MCH 29.7 pg (27.0-31.0) 10/26/17 08:33 MCHC 34.6 g/dL (33.0-37.0) 10/26/17 08:33 RDW 13.4 % (11.5-14.5) 10/26/17 08:33 Plt Count 279 K/uL (130-400) 10/26/17 08:33 MPV 9.9 fL (7.2-11.7) 10/26/17 08:33 Neut % (Auto) 79.2 % (50.0-75.0) H 10/26/17 08:33 Lymph % (Auto) 7.8 % (20.0-40.0) L 10/26/17 08:33 [place] % (Auto) 8.6 % (0.0-10.0) 10/26/17 08:33 Eos % (Auto) 4.3 % (0.0-4.0) H 10/26/17 08:33 Baso % (Auto) 0.1 % (0.0-2.0) 10/26/17 08:33 Neut # (Auto) 8.6 K/uL (1.8-7.0) H 10/26/17 08:33 Lymph # (Auto) 0.8 K/uL (1.0-4.3) L 10/26/17 08:33 [place] # (Auto) 0.9 K/uL (0.0-0.8) H 10/26/17 08:33 Eos # (Auto) 0.5 K/uL (0.0-0.7) 10/26/17 08:33 Baso # (Auto) 0.0 K/uL (0.0-0.2) 10/26/17 08:33 Neutrophils % (Manual) 72 % (50-75) 10/26/17 08:33 Band Neutrophils % 6 % (0-2) H 10/26/17 08:33 Lymphocytes % (Manual) 3 % (20-40) L 10/26/17 08:33 Reactive Lymphs % 1 % (0-0) H 10/26/17 08:33 Monocytes % (Manual) 8 % (0-10) 10/26/17 08:33 Eosinophils % (Manual) 8 % (0-4) H 10/26/17 08:33 Basophils % (Manual) 1 % (0-2) 10/26/17 08:33 Metamyelocytes % 1 % (0-0) H 10/26/17 08:33 Large Platelets Present 10/25/17 12:03 Platelet Estimate Normal (NORMAL) 10/26/17 08:33 Hypochromasia (manual) Slight 10/25/17 12:03 Poikilocytosis (manual Slight 10/25/17 12:03 Anisocytosis (manual) Slight 10/25/17 12:03 RBC Morphology Normal 10/26/17 08:33 Target Cells Slight 10/25/17 12:03 PT 13.4 SECONDS (9.7-12.2) H 10/24/17 22:39 INR 1.2 10/24/17 22:39 APTT 22 SECONDS (21-34) 10/24/17 22:39 D-Dimer, Quantitative 552 ng/mlDDU (0-243) H 10/24/17 22:39 Sodium 131 mmol/L (132-148) L 10/26/17 08:33 Potassium 3.5 mmol/L (3.6-5.2) L 10/26/17 08:33 Chloride 93 mmol/L (98-107) L 10/26/17 08:33 Carbon Dioxide 30 mmol/L (22-30) 10/26/17 08:33 Anion Gap 12 (10-20) 10/26/17 08:33 BUN 9 mg/dL (9-20) 10/26/17 08:33 Creatinine 1.1 mg/dL (0.8-1.5) 10/26/17 08:33 Est GFR ( Amer) > 60 10/26/17 08:33 Est GFR (Non-Af Amer) > 60 10/26/17 08:33 POC Glucose (mg/dL) 255 mg/dL (65-110) H 11/01/17 10:51 Random Glucose 357 mg/dL (75-110) H 10/26/17 08:33 Hemoglobin A1c 10.4 % (4.2-6.5) H 10/27/17 11:13 Calcium 9.0 mg/dl (8.6-10.4) 10/26/17 08:33 Total Bilirubin 0.9 mg/dL (0.2-1.3) 10/26/17 08:33 AST 33 U/L (17-59) 10/26/17 08:33 ALT 42 U/L (21-72) 10/26/17 08:33 Alkaline Phosphatase 122 U/L (38-126) 10/26/17 08:33 Total Protein 7.4 g/dL (6.3-8.3) 10/26/17 08:33 Albumin 3.6 g/dL (3.5-5.0) 10/26/17 08:33 Globulin 3.9 gm/dL (2.2-3.9) 10/26/17 08:33 Albumin/Globulin Ratio 0.9 (1.0-2.1) L 10/26/17 08:33 Urine Color Yellow (YELLOW) 10/24/17 22:05 Urine Clarity Clear (Clear) 10/24/17 22:05 Urine pH 6.0 (5.0-8.0) 10/24/17 22:05 Ur Specific [place] 1.024 (1.003-1.030) 10/24/17 22:05 Urine Protein 2+ mg/dL (NEGATIVE) H 10/24/17 22:05 Urine Glucose (UA) 3+ mg/dL (Normal) H 10/24/17 22:05 Urine Ketones Negative mg/dL (NEGATIVE) 10/24/17 22:05 Urine Blood 1+ (NEGATIVE) H 10/24/17 22:05 Urine Nitrate Negative (NEGATIVE) 10/24/17 22:05 Urine Bilirubin Negative (NEGATIVE) 10/24/17 22:05 Urine Urobilinogen Normal mg/dL (0.2-1.0) 10/24/17 22:05 Ur Leukocyte Esterase Neg [place]/uL (Negative) 10/24/17 22:05 Urine WBC (Auto) 3 /hpf (0-5) 10/24/17 22:05 Urine RBC (Auto) 2 /hpf (0-3) 10/24/17 22:05 Ur Squamous Epith Cells < 1 /hpf (0-5) 10/24/17 22:05 Vancomycin Trough < 5.0 ug/mL (5.0-10.0) L 10/27/17 00:20 Serum Ketones Negative (NEGATIVE) 10/24/17 22:45 - Hospital Course Hospital Course: ADMITTED WITH CELLULITIS OF LEFT CALF WITH OUT PT FAILURE OF PO AB FEW DAYS AGO PT PRESENTED TO PMD WITH FLU LIKE SYMPTOMS AND LEFT CALF PAIN AND SWELLING . PT WAS GIVEN TAMIFLU . PRESENTED NEXT DAY TO ER AND WAS GIVEN PO KEFLEX . ABOVE PO AB DID NOT IMPROVE PT'S SYMPTOMS AND SWELLING GOT WORSE A/W DIAPHORESIS , FEVER AND FATIGUED PT ALSO WAS FOUND TO HAVE NEW ONSET OF HIGH SUGAR PAST HIST. HTN/OBESITY/PREVIOUS STREP INFECTION OF LEGS SEC TO ELEPHANTIASIS NEG FOR DVT BC NEG PT IMPROVED ON IV AB HAS ALLERGY TO CEPHALOSPORIN SUGARS WERE UP REQUIRING 2 MEDS AND INSULIN PICC LINE AND OUT PT IV AB DAPTO Discharge Plan - Discharge Medications Prescriptions: DiphenhydrAMINE [Benadryl] 25 mg PO Q6 PRN #10 cap PRN Reason: Itching / Pruritus DAPTOmycin [Cubicin] 690 mg IV Q24H 7 Days vial metFORMIN [glucOPHAGE] 1,000 mg PO BIDCC #60 tab GlipiZIDE [Glucotrol] 5 mg PO BID #60 tab - Follow Up Plan Condition: STABLE Disposition: HOME/ ROUTINE Instructions: Diphenhydramine (By mouth), Metformin (By mouth), Daptomycin (By injection), How to Stop Smoking (DC), Cellulitis (DC), Heart Healthy Diet (DC), How to Check Your Blood Sugar (DC), Diabetes Mellitus Type 2 in Adults (DC), Hypertension (DC) Additional Instructions: Discharge home as per Dr. Streeter. Cubicin IV daily as ordered / home infusion for 7 days via PICC line. Follow up with Dr. Streeter in 1 week Metformin / glipizide / glucometer
[2017-11-01 14:27] LABS: BASO % 0.3 % (0.0-2.0); EOS # 1.3 K/uL (0.0-0.7); EOS % 9.4 % (0.0-4.0); HEMOGLOBIN 11.2 g/dL (12.0-18.0); LYMPH # 2.1 K/uL (1.0-4.3); MEAN CELL VOLUME 86.8 fL (80.0-94.0); MEAN CORPUSCULAR HEMOGLOBIN 28.8 pg (27.0-31.0); MEAN CORPUSCULAR HGB CONC 33.2 g/dL (33.0-37.0); MEAN PLATELET VOLUME 9.1 fL (7.2-11.7); MONO # 0.7 K/uL (0.0-0.8); MONO % 5.4 % (0.0-10.0); NEUT # 9.7 K/uL (1.8-7.0); NEUT % 69.9 % (50.0-75.0); NRBC % 0.2 % (0.0-2.0); RBC 3.88 Mil/uL (4.40-5.90); RED CELL DISTRIBUTION WIDTH 13.8 % (11.5-14.5); WHITE BLOOD COUNT 13.9 K/uL (4.8-10.8)
[2017-11-01 14:43] LABS: ALB/GLOB RATIO 0.8 (1.0-2.1); ALBUMIN 3.6 g/dL (3.5-5.0); ALT/SGPT 44 U/L (21-72); AST/SGOT 26 U/L (17-59); BLOOD UREA NITROGEN 12 mg/dL (9-20); CALCIUM 9.2 mg/dl (8.6-10.4); GFR AFRICAN-AMERICAN > 60; GFR NON-AFRICAN AMERICAN > 60
== END 2017-11-01 15:04 | disposition home or self-care (01) | DRG 603 ==
LOC: C.ER 20:00 → C.9E 23:07 → C.3T 10-25 01:03
PROVIDERS: ADMIT Internal Medicine Cardiovascular Disease; ATTEND Internal Medicine Cardiovascular Disease
PROC: 02HV33Z Insertion of Infusion Device into Superior Vena Cava, Percutaneous Approach (ICD-10-PCS; principal; 2017-11-01)
DX: L03.116 Cellulitis of left lower limb (principal); I89.0 Lymphedema, not elsewhere classified; E11.65 Type 2 diabetes mellitus with hyperglycemia; Z68.43 Body mass index [BMI] 50.0-59.9, adult; I10 Essential (primary) hypertension; E66.01 Morbid (severe) obesity due to excess calories; G47.33 Obstructive sleep apnea (adult) (pediatric); K21.9 Gastro-esophageal reflux disease without esophagitis; L29.9 Pruritus, unspecified; F17.210 Nicotine dependence, cigarettes, uncomplicated; Z90.49 Acquired absence of other specified parts of digestive tract; Z88.0 Allergy status to penicillin